=== PATIENT | male | born 1960 | race Caucasian/White ===

== ENCOUNTER 2018-11-06 21:20 | Inpatient (IN) | payer OTHER ==
[2018-11-06] MEDS ORDERED: Naloxone HCl 2 mg/2 ml Syringe ONE (21:22)
[2018-11-06] MEDS ORDERED: Rocuronium Bromide 10 MG/ML (10ML VIAL) ONE (21:24)
[2018-11-06] MEDS ORDERED: Fentanyl 100 MCG/2 ML VIAL ONE (21:30)
[2018-11-06] MEDS ORDERED: Midazolam HCl 2 mg/2 ml Vial ONE (21:30)
--- NOTE | 2018-11-06 21:48 | RAD ---
FRONTAL RADIOGRAPH CHEST PORTABLE SUPINE: 11/06/2018 HISTORY: Altered mental status. Intubated patient. COMPARISON: None. FINDINGS: Supine imaging limits assessment for pneumothorax and pleural fluid. Body habitus limits detailed as sessment of the upper abdomen. There is mild prominence of the cardiac silhouette, which may signify cardiomegaly or magnification. The endotracheal tube terminates just below the level of the clavicles, overlying the tracheal air co lumn. No focal consolidation. IMPRESSION: Endotracheal tube, as above. POS: [facility]
[2018-11-06 21:57] LABS: PTT 25.2 SEC (22.9-36.1); Prothrombin Time 13.3 SEC (12.0-14.7)
[2018-11-06 22:04] LABS: Band 10 % (5-11); Lymphocytes 29 % (21-51); MDiff Complete? YES; Mean Corpuscular HGB CONC 34.3 g/dL (32.0-36.0); Mean Corpuscular Hemoglobin 34.6 pg (27.0-31.0); Mean Platelet Volume 8.8 fL (7.4-10.4); Metamyelocyte 2 % (0-0); Monocytes 2 % (0-10); Myelocyte 1 % (0-0); Neutrophil 56 % (42-75); Nucleated RBC 1 % (0); Platelet Count 201 thou/uL (130-400); Platelet Morphology Comment Appears Adequate; RBC Distribution Width 11.9 % (11.5-14.5); Red Blood Cell (RBC) Count 5.77 mill/uL (4.70-6.10); White Blood Cell (WBC) Count 25.4 thou/uL (4.8-10.8)
[2018-11-06 22:08] LABS: ALT (SGPT) 43 U/L (8-55); AST (SGOT) 69 U/L (5-34); Acetaminophen Less than 6.0 mcg/mL (10.0-30.0); Albumin 4.3 g/dL (3.5-5.0); Alcohol 48 mg/dL (Less than 10); Alkaline Phosphatase 74 U/L (40-150); Anion Gap 27 mmol/L (10-20); BUN (Urea Nitrogen) 13 mg/dL (8.4-25.7); Bilirubin, Total 0.6 mg/dL (0.2-1.2); CK (CPK) 166 U/L (30-200); Calc. Creatinine Clearance 0 mL/min (70-130); Calcium 10.4 mg/dL (7.8-10.44); Carbon Dioxide 20 mmol/L (22-29); Chloride 97 mmol/L (98-107); Estimated GFR-MDRD 31; Globulin 5.1 g/dL (2.4-3.5); Glucose 127 mg/dL (70-105); Lipase 29 U/L (8-78); Potassium 5.9 mmol/L (3.5-5.1); Protein, Total 9.4 g/dL (6.0-8.3); Salicylate Less than 8.0 mg/dL (15.0-30.0); Sodium 138 mmol/L (136-145)
[2018-11-06 22:15] LABS: Amphetamine Not Detected (NotDetected); Barbiturates Screen Not Detected (NotDetected); Benzodiazepine Screen Not Detected (NotDetected); Cocaine Metabolite Screen Detected (NotDetected); Medtox Control Line Valid? VALID (VALID); Medtox Reader # READER 4; Methadone Not Detected (NotDetected); Methamphetamine Detected (NotDetected); Opiate Screen Detected (NotDetected); Oxycodone Screen Not Detected (NotDetected); Phencyclidine (PCP) Not Detected (NotDetected); THC/Cannabinoid Screen Not Detected (NotDetected); Tricyclic Screen Not Detected (NotDetected)
[2018-11-06 22:30] LABS: CKMB 18.8 ng/mL (0-6.6)
[2018-11-06] MEDS ORDERED: Dextrose 50% Abboject 50 ML SYRINGE ONE (22:43)
[2018-11-06] MEDS ORDERED: Aspirin 300 MG Suppository ONE (22:43)
[2018-11-06] MEDS ORDERED: Calcium Chloride 1 GM/10 ML Abboject SYRINGE ONE (22:43)
[2018-11-06] MEDS ORDERED: Insulin Regular 300 UNITS/3 ML VIAL ONE (22:43)
[2018-11-06] MEDS ORDERED: Sodium Bicarbonate 150 MEQ in Dextrose 5% in Water 1,000 ML IV SCH ×2 (22:45→23:47)
--- NOTE | 2018-11-06 22:55 | CT ---
CT HEAD WITHOUT CONTRAST: 11/06/2018 HISTORY: Unresponsive patient. COMPARISON: None. TECHNIQUE: Axial CT imaging at 5 mm intervals, from the vertex through the skull base, without contrast. FINDINGS: The imaged paranasal sinuses and mastoid air cells are well aerated. There is no displaced calvarial fracture. No intracranial hemorrhage, midline shift, mass effect, or ventricular enlargement. IMPRESSION: No intracranial hemorrhage. POS: [facility]
--- NOTE | 2018-11-06 22:57 | CT ---
CT CERVICAL SPINE: 11/06/2018 HISTORY: Altered mental status. COMPARISON: None. TECHNIQUE: Axial CT imaging at 2.5 mm intervals, through the cervical spine, with coronal and sagittal reformatt ed imaging. FINDINGS: There is an endotracheal tube present. The imaged lung apices are unremarkable. The craniocervical junction, atlantoaxial interspace, dense, C1-C2 articulation, and cervicothoracic junction demonstrat e no acute findings. No prevertebral soft tissue swelling, fracture, or dislocation. No anterolisth esis or retrolisthesis. IMPRESSION: No acute osseous abnormality. POS: [facility]
[2018-11-06 23:03] LABS: CO2 Tension 68.5 mmHg (35.0-45.0); O2 Tension (PaO2) 70.1 mmHg (80.0-100.0); pH, Arterial 7.11 (7.35-7.45)
[2018-11-06 23:04] LABS: Actual Bicarbonate (HCO3a) 21.2 mEq/L (22-28); Base Excess (BEa) 10.2 mEq/L (-2.0 to +3.0); Calcium, Ionized 1.22 mmol/L (1.12-1.30); Carboxyhemoglobin (COHb) 4.9 gm% (0.0-3.0); Hemoglobin (Hb) 20.4 g/dL (14.0-18.0); Potassium - ABG Lab 4.38 mmol/L (3.70-5.30)
[2018-11-06] MEDS ORDERED: Propofol 1,000 MG/100 ML VIAL IV ONE (23:04)
[2018-11-06 23:05] LABS: Analyzer IN Cardio ER; Puncture Site LRA
[2018-11-06] MEDS ORDERED: Ondansetron PF 4 MG/2 ML Vial IVP PRN (23:18)
[2018-11-06] MEDS ORDERED: Acetaminophen 650 MG Suppository PR PRN (23:18)
--- NOTE | 2018-11-06 23:48 | RAD ---
PORTABLE SEMIUPRIGHT FRONTAL CHEST RADIOGRAPH: 11/06/2018 11:12 p.m. HISTORY: Central line placement. COMPARISON: 11/06/2018 at 9:28 p.m. FINDINGS: Endotracheal tube terminates at the level of the clavicular heads. Nasogastric tube extends into the upper abdomen, incompletely imaged. Right-sided vascular catheter terminates over the region of the cavoatrial junction. no pneumothorax is evident. There is new interstitial and aveolar opacity in the perihilar regions in both lung bases. Probable new bilateral pleural effusions are noted as well. IMPRESSION: Lines and tubes as above. New perihilar and bibasilar interstitial and alveolar opacity, with probab le associated pleural effusion, suggests pulmonary edema. Aspiration cannot be excluded. Followup t o resolution advised. POS: [facility]
--- NOTE | 2018-11-06 23:57 | PDOC.EVN ---
Event Note - Event Note Event Note: H&P [id number]
[2018-11-07] MEDS ORDERED: Norepinephrine 8 MG/0.9% NS 250 ML ONE (00:23)
[2018-11-07] MEDS ORDERED: Clindamycin/D5W 900 mg/50 ml Premix Bag ONE (00:25)
[2018-11-07] MEDS ORDERED: Cefepime 2 GM VIAL ONE (00:25)
--- NOTE | 2018-11-07 00:35 | HP ---
ADMITTING COMPLAINT: Drug overdose. HISTORY OF PRESENT ILLNESS: This is a 58-year-old male, who was admitted to the Residence Team initially and then they called back saying that there were capsule and the patient was then admitted to Internal Medicine Service here at [facility]. History is not really available for this patient according to discussions with the ER doctor. Apparently, a bunch of people just came by and dropped the patient off and give his first and last name and left. Laboratory results found that the patient had apparently done opioids, methamphetamines, cocaine, and alcohol. Apart from that, no real history available. Per EMS, the patient was blue. They gave him ice water. The patient was intubated for respiratory failure here in the ER and that is all that is available. ALLERGIES: UNKNOWN. SOCIAL HISTORY: Unknown. PAST MEDICAL HISTORY: Unknown. HOME MEDICATIONS: Unknown. REVIEW OF SYSTEMS: Not possible given the patient is intubated. PHYSICAL EXAMINATION: GENERAL: The patient is intubated. HEENT: Pupils are dilated, mildly constrictive to light. LUNGS: Lung sounds coarse. HEART: Heart sounds, tachycardia. Faint systolic murmur appreciated. ABDOMEN: Rotund. Positive bowel sounds. Soft. EXTREMITIES: 1+ pitting edema in bilateral lower extremities. LABORATORY DATA: CBC, WBC count of 25, hemoglobin of 20. ABG shows pH of 7.11, pCO2 of 68.5, PO2 of 70. Basic metabolic panel shows sodium 138, potassium 5.9, anion gap of 27, bicarb of 20, creatinine 2.17, lactic acid of 8.7, glucose 124 , AST 69, ALT 43, CK-MB of 18.8, troponins 0.05. Toxicology screen positive for methamphetamines, cocaine, opioids, and alcohol. CT brain negative. Chest x- ray negative. Cervical spine CT negative. ASSESSMENT: 1. Drug overdose. 2. Respiratory failure. 3. Respiratory acidosis with metabolic acidosis, as well as non-anion gap metabolic alkalosis. 4. Sinus tachycardia with significant hypertensive emergency secondary to drug use, likely. 5. Acute kidney injury versus chronic kidney disease. 6. Questionable history of heart failure. 7. Elevated troponins. PLAN: 1. At this point in time, we will admit the patient to IMCU. Consult Cardiology , Pulmonary, and Nephrology. 2. This patient's hyperkalemia has been treated with insulin. The patient has received 2 L of fluid along with another liter of bicarb. Initial labs that were done at 9 o'clock do show high hemoglobin, possible the patient being dry, appears fluid resuscitated at this point in time. KYE may be secondary to ATN. At this point in time, case was discussed with the bacteriologist medical attending. They felt that fluids would be better served for the patient. 3. My concern at this point in time is the patient is tachycardic significantly with blood pressure systolics ranging in the 210s, diastolics in the 140s. He has gotten significant amount of fluids, so we will not bolus more fluids. We will do 75 mL of bicarb drip given the significant acidosis, very high probability, the bicarb levels are probably full by next BMP. 4. We will get the next BMP at 2:00 a.m. and following after that in the morning. 5. Repeat lactic acid. 6. Serum osmolality was ordered and pending, not available. 7. Trend troponins. 8. The patient intubated. Vent management per Pulmonary. 9. Unclear if the patient actually is having ACS for his past medical history as he is slightly overweight, obese, not sure this is the first time he has done drugs or what his prior cardiac conditions are, so we will order an echo to evaluate for architectural conditions of the heart possibly the valves, right ventricular pressures as well as ejection fraction. No known drug allergies, so for now, we will monitor. We will use labetalol for heart rate and blood pressure control. We will consider starting N-acetylcysteine depending on next set of lab panel. Prognosis appears overall poor if he does have a history of heart failure or prior drug use but at this point in time, cannot tell by default. The patient will be a full code. No family available at bedside depending on serum osmolarity or if there is serum osmolar gap. We have advised the nurse to give me a call or the ICU attending for possible emergent dialysis to be taken into consideration. No family at bedside. Plan discussed with the General Critical Care attending, as well as the ER doc. Job ID: [id number] [id number]
[2018-11-07 00:36] LABS: Anion Gap 16 mmol/L (10-20); BUN (Urea Nitrogen) 14 mg/dL (8.4-25.7); Calc. Creatinine Clearance 0 mL/min (70-130); Calcium 9.6 mg/dL (7.8-10.44); Carbon Dioxide 27 mmol/L (22-29); Chloride 102 mmol/L (98-107); Estimated GFR-MDRD 41; Glucose 201 mg/dL (70-105); Potassium 3.9 mmol/L (3.5-5.1); Sodium 141 mmol/L (136-145)
[2018-11-07] MEDS ORDERED: Fentanyl BOLUS 250 ML IVPB PRN (01:53)
[2018-11-07] MEDS ORDERED: DISCONTINUE PREVIOUS NARCOTIC PAIN MEDICATIONS AND BENZODIAZEPINES FS SCH (01:53)
[2018-11-07] MEDS ORDERED: Morphine 2 MG/ML SYRINGE SLOW IVP PRN (01:53)
[2018-11-07] MEDS ORDERED: Propofol BOLUS 1,000 MG/100 ML VIAL IV PRN (01:53)
[2018-11-07 01:56] LABS: Lactic Acid 2.2 mmol/L (0.5-2.2)
[2018-11-07 02:28] LABS: Lactic Acid 1.9 mmol/L (0.5-2.2)
[2018-11-07] MEDS ORDERED: Sodium Chloride 0.9% 1,000 ML IV SCH (02:30)
[2018-11-07 02:34] LABS: Band 28 % (5-11); Hemoglobin 17.9 g/dL (14.0-18.0); Lymphocytes 5 % (21-51); MDiff Complete? YES; Mean Corpuscular HGB CONC 32.8 g/dL (32.0-36.0); Mean Corpuscular Hemoglobin 32.8 pg (27.0-31.0); Mean Platelet Volume 6.6 fL (7.4-10.4); Metamyelocyte 1 % (0-0); Monocytes 4 % (0-10); Neutrophil 62 % (42-75); Platelet Count 184 thou/uL (130-400); Platelet Morphology Comment Appears Adequate; RBC Distribution Width 11.7 % (11.5-14.5); Red Blood Cell (RBC) Count 5.46 mill/uL (4.70-6.10); White Blood Cell (WBC) Count 12.9 thou/uL (4.8-10.8)
[2018-11-07] MEDS ORDERED: Norepinephrine 8 MG/250 ML BAG IVPB PRN (02:43)
[2018-11-07 02:50] LABS: Base Excess (BEa) -2.6 mEq/L (-2.0 to +3.0); Calcium, Ionized 1.25 mmol/L (1.12-1.30); Carboxyhemoglobin (COHb) 2.9 gm% (0.0-3.0); Hemoglobin (Hb) 18.2 g/dL (14.0-18.0); O2 Tension (PaO2) 67.1 mmHg (80.0-100.0); Potassium - ABG Lab 4.61 mmol/L (3.70-5.30)
[2018-11-07 02:51] LABS: CO2 Tension 72.8 mmHg (35.0-45.0); Puncture Site RBRACH
[2018-11-07 03:00] LABS: ALT (SGPT) 38 U/L (8-55); AST (SGOT) 95 U/L (5-34); Albumin 3.2 g/dL (3.5-5.0); Alkaline Phosphatase 54 U/L (40-150); Anion Gap 16 mmol/L (10-20); BUN (Urea Nitrogen) 16 mg/dL (8.4-25.7); Bilirubin, Total 1.6 mg/dL (0.2-1.2); Calc. Creatinine Clearance 75 mL/min (70-130); Calcium 9.3 mg/dL (7.8-10.44); Carbon Dioxide 26 mmol/L (22-29); Chloride 103 mmol/L (98-107); Estimated GFR-MDRD 38; Globulin 3.2 g/dL (2.4-3.5); Glucose 146 mg/dL (70-105); Potassium 4.7 mmol/L (3.5-5.1); Protein, Total 6.4 g/dL (6.0-8.3); Sodium 140 mmol/L (136-145)
--- NOTE | 2018-11-07 04:28 | CON ---
DATE OF CONSULTATION: 11/07/2018 TIME SPENT: This is 35 minutes critical time. CONSULTING PHYSICIAN: Dr. Dill. REASON FOR CONSULTATION: ICU management. HISTORY OF PRESENT ILLNESS: Mr. Richardson is a 58-year-old male, who apparently was brought to the ER unresponsive. He had been doing multiple drugs with opioids, methamphetamines, cocaine, and alcohol. He was blue. He was intubated. PAST MEDICAL HISTORY: Unknown. PAST SURGICAL HISTORY: Unknown. ALLERGIES: UNKNOWN. MEDICATIONS: Unknown. FAMILY MEDICAL HISTORY: Unknown. REVIEW OF SYSTEMS: Unobtainable. PHYSICAL EXAMINATION: VITAL SIGNS: Pulse 101, blood pressure 96/65, O2 sat 97%, respiratory rate 18. GENERAL: This patient is a heavyset male who is intubated and on mechanical ventilation. HEENT: He has pinpoint pupils, 1 mm. NECK: No JVD. LUNGS: Coarse breath sounds bilaterally. CARDIOVASCULAR: S1 and S2, regular. ABDOMEN: Obese, soft, and nontender. EXTREMITIES: No clubbing, cyanosis, or edema. NEUROLOGICAL: He moves all 4 extremities. LABORATORY DATA: White blood cell count 25.4, hemoglobin 20, hematocrit 58, platelet count 201. INR 1.0, PTT 25.2. PH initially 7.11, pCO2 of 68, and pO2 of 70, SIMV rate 16, tidal volume 550, PEEP 5, pressure support 10. FiO2 was not recorded. Sodium 141, potassium 3.9, chloride 102, CO2 of 27, BUN 14, creatinine 1.7, glucose 201, anion gap is 4, lactate repeated is 3.3, calcium 9.6. Opiates, methamphetamines, and cocaines were all positive on drug screen. Alcohol level 48. His chest x-ray shows interstitial edema bilaterally. DIAGNOSTIC DATA: Head CT showed no evidence of hemorrhage. ASSESSMENT: 1. Narcotic overdose. 2. Acute respiratory failure from mechanical ventilation. 3. Acute renal insufficiency, which has already improved on a repeat chemistry. 4. Hyperkalemia, which is resolved. 5. Lactic acidosis, improved. PLAN: Basically supported with mechanical ventilation. Keep on light sedation. He probably needs more fluids than what he has already received. His CVP was 9, so we have some room to give more volume as we need to. Thank you for the referral. We will follow with you. Job ID: [id number]
[2018-11-07 06:55] LABS: Actual Bicarbonate (HCO3a) 28.1 mEq/L (22-28); Base Excess (BEa) -2.1 mEq/L (-2.0 to +3.0); Calcium, Ionized 1.19 mmol/L (1.12-1.30); Hemoglobin (Hb) 18.5 g/dL (14.0-18.0); O2 Tension (PaO2) 71.9 mmHg (80.0-100.0); Potassium - ABG Lab 5.89 mmol/L (3.70-5.30)
[2018-11-07 06:56] LABS: pH, Arterial 7.22 (7.35-7.45)
[2018-11-07 06:57] LABS: ALV-art Gradient 410.625 (0-20); CO2 Tension 70.3 mmHg (35.0-45.0); Puncture Site LBA
[2018-11-07] MEDS ORDERED: Bacteriostatic Water 30 ML VIAL FS PRN (08:09)
[2018-11-07] MEDS: Sodium Chloride 0.9% 1,000 ML IV SCH (08:44)
[2018-11-07] MEDS: Enoxaparin Sodium 40 MG/0.4 ML SYRINGE SC SCH (08:47)
[2018-11-07] MEDS: Famotidine/PF 20 mg/2ml Vial SLOW IVP SCH ×2 (08:47→20:41)
--- NOTE | 2018-11-07 09:19 | RAD ---
RADIOGRAPH ABDOMEN ONE VIEW: 11/07/2018 3:18 a.m. HISTORY: A 58-year-old male with abdominal distention and drug overdose. COMPARISON: None. FINDINGS: A large amount of gas in a loop of colon in the right side of the abdomen. Paucity of small bowel ga s. IMPRESSION: Nonspecific bowel gas pattern without overt evidence of small bowel obstruction. POS: [facility]
[2018-11-07] MEDS: Lorazepam 2 MG/ML VIAL SLOW IVP PRN ×3 (10:00→20:42)
[2018-11-07] MEDS: fentaNYL Citrate/PF 2,000 MCG in Sodium Chloride 0.9% 60 ML IV SCH ×2 (10:15→22:49)
[2018-11-07] MEDS: methylPREDNISolone Sod Succ 40 MG VIAL IVP SCH ×2 (11:51→17:37)
--- NOTE | 2018-11-07 15:00 | CON ---
DATE OF CONSULTATION: 11/07/2018 REASON FOR CONSULTATION: Elevated troponin. HISTORY OF PRESENT ILLNESS: Mr. Richardson is a 58-year-old black gentleman, who comes to the hospital for a drug overdose. Apparently, he was doing several different drugs, including cocaine, methamphetamines, alcohol, and opioids. He was unresponsive, was actually severely hypoxic in the ER to the point where he was blue. He had to be intubated immediately and he is doing much better now. During his admission, he had blood work, one of which was troponin, which is mildly elevated, so Cardiology is being consulted for that. He is unable to give me any history as he remains intubated, however; he opens his eyes wide open when you move him or when you talk to him and he follows with already following commands. PAST MEDICAL HISTORY: unknown. SURGICAL HISTORY: Unknown. ALLERGIES: UNKNOWN. MEDICATIONS: Outpatient medications are unknown. FAMILY HISTORY: Unknown. REVIEW OF SYSTEMS: Unobtainable as the patient remains intubated. PHYSICAL EXAMINATION: VITAL SIGNS: Temperature 100.1 and the highest has been 100.4 earlier today, pulse 80, respiratory rate 27, saturating 99% on 40% FiO2 and mechanical ventilation, and blood pressure 125/81. GENERAL: Intubated, but opens his eyes to any verbal command. HEENT: Normocephalic. LUNGS: Coarse breath sounds. CARDIOVASCULAR: S1 and S2. No S3 or S4. No murmurs. ABDOMEN: Soft. Positive bowel sounds. EXTREMITIES: No edema. SKIN: Warm and dry. LABORATORY DATA: Laboratory work was reviewed. CBC with a white count of 25, down to 12; hemoglobin was 20, down to 17; and platelet count of 184. Coags were normal. ABG was reviewed, acidotic. Chemistries were reviewed. Creatinine improved from 2.1 to 1.7. Toxicology positive for urine opiates, methamphetamines, cocaine and plasma alcohol was 48. ASSESSMENT AND PLAN: 1. Drug overdose. 2. Positive troponins. PLAN: Troponins are actually in the indeterminate range. We will get an echocardiogram to assess LV function, valvular structures as he may have a cardiomyopathy from drug use. This is not the case, then this is just related to his severe hypoxia, near experience. Otherwise, no major arrhythmias seen so far. Thank you for letting us to participate in the care of your patient. We will follow. Job ID: [id number]
--- NOTE | 2018-11-07 15:48 | CON ---
DATE OF CONSULTATION: REASON FOR CONSULTATION: A 58-year-old gentleman being seen for acute kidney injury. HISTORY OF PRESENT ILLNESS: A 58-year-old gentleman, who was intubated, unresponsive, was noted to have a creatinine of 1.8. Prior creatinine was 2.1 yesterday. No further history can be obtained. The patient comes in with narcotic overdose. PAST MEDICAL HISTORY: Unknown. PAST SURGICAL HISTORY: Unknown. ALLERGIES: UNKNOWN. MEDICATIONS: Unknown. FAMILY HISTORY: Negative for ESRD. REVIEW OF SYSTEMS: Unobtainable. PHYSICAL EXAMINATION: See above. Awake, alert, in no acute distress. GENERAL APPEARANCE AND MENTAL STATUS: Fair. HEAD/NECK: Normocephalic. Atraumatic. EYES: EOMI. No deformity. EARS: Clear. No ulcers. NOSE: Intact. No lesions. MOUTH: Clear. No discharge. THROAT: Clear. No exudate. LUNGS: Clear. No crackles. CARDIAC: S1, S2. No rub. ABDOMEN: Benign. Bowel sounds positive. GENITALIA/RECTUM: Kendrick absent. BACK/EXTREMITIES: Edema 0+. NEUROLOGICAL: Alert and motor intact. SKIN: LYMPHATICS: VITAL SIGNS: Reviewed. LABORATORY DATA: Labs show creatinine 1.8. ASSESSMENT AND PLAN: Acute kidney injury, improved. Hypertension, stable. Anemia, stable. No indication for dialysis at this time. Job ID: [id number]
--- NOTE | 2018-11-07 16:01 | PDOC.PN ---
- Subjective Encounter Start Date: 11/07/18 Encounter Start Time: 10:20 Pt seen for followup re: acute respiratory failure. Pt is intubated, unable to complete ROS. - Objective MAR Reviewed: Yes Vital Signs & Weight: Vital Signs (12 hours) Temp Pulse Resp BP Pulse Ox 11/07/18 14:12 80 125/81 11/07/18 14:11 81 27 H 99 11/07/18 14:00 26 H 11/07/18 12:12 76 11/07/18 12:00 100.1 F H 11/07/18 11:56 26 H 11/07/18 10:29 71 11/07/18 10:00 26 H 11/07/18 08:00 99.3 F 26 H 99 11/07/18 06:41 79 11/07/18 06:00 22 H 11/07/18 04:00 99.5 F 22 H Weight Admit Weight 266 lb Weight 266 lb 5.094 oz Most Recent Monitor Data Heart Rate from ECG 78 NIBP 115/81 NIBP BP-Mean 92 Respiration from ECG 26 SpO2 100 I&O: 11/06/18 11/07/18 11/08/18 06:59 06:59 06:59 Intake Total 1477.8 304 Output Total 117 225 Balance 1360.8 79 Result Diagrams: 11/07/18 02:04 11/07/18 02:04 Additional Labs: Accuchecks 11/06/18 22:47 POC Glucose 124 H Labs reviewed by me Phys Exam - Physical Examination Morbid obesity ETT Neck: no nodes Respiratory: clear to auscultation bilateral Cardiovascular: RRR Gastrointestinal: soft no spontaneous limb movements Deviation from normal: Unable to assess Dx/Plan (1) Acute respiratory failure with hypoxia and hypercapnia Code(s): J96.01 - ACUTE RESPIRATORY FAILURE WITH HYPOXIA; J96.02 - ACUTE RESPIRATORY FAILURE WITH HYPERCAPNIA Status: Acute Comment: Pt is intubated , mechanically ventilated (2) KYE (acute kidney injury) Code(s): N17.9 - ACUTE KIDNEY FAILURE, UNSPECIFIED Status: Acute Comment: nephrology following (3) Drug overdose Code(s): T50.901A - POISONING BY UNSP DRUG/MEDS/BIOL SUBST, ACCIDENTAL, INIT Status: Acute Comment: managed in CCU (4) Hypotension Status: Acute Comment: pt on levophed drip - Plan * . Review of Systems - Medications/Allergies Allergies/Adverse Reactions: Allergies Allergy/AdvReac Type Severity Reaction Status Date / Time Penicillins Allergy Verified 11/07/18 02:43 Medications: Current Medications Acetaminophen (Tylenol) 650 mg DC Q4H PRN PRN Reason: Headache/Fever/Mild Pain (1-3) Albuterol/Ipratropium (Duoneb) 3 ml NEB [id number] [facility] Last Admin: 11/07/18 14:11 Dose: 3 ml Enoxaparin Sodium (Lovenox) 40 mg SC 0900 [facility] Last Admin: 11/07/18 08:47 Dose: 40 mg Famotidine (Pepcid) 20 mg SLOW IVP BID [facility] Last Admin: 11/07/18 08:47 Dose: 20 mg Fentanyl Citrate 2,000 mcg/ (Sodium Chloride) 100 mls @ 0 mls/hr IV INF [facility]; Protocol Stop: 12/06/18 21:57 Last Admin: 11/07/18 10:15 Dose: 100 mls Fentanyl Citrate (Fentanyl Bolus) 250 mls @ 0 mls/hr IVPB PRN PRN PRN Reason: Breakthrough pain/agitation Stop: 12/07/18 01:53 Norepinephrine Bitartrate (Levophed) 250 mls @ 0 mls/hr IVPB INF PRN; Protocol PRN Reason: Blood Pressure Last Admin: 11/07/18 01:42 Dose: 250 mls Sodium Chloride (Normal Saline 0.9%) 1,000 mls @ 70 mls/hr IV .[id number] [facility] Last Admin: 11/07/18 08:44 Dose: 1,000 mls Levofloxacin 750 mg/ Device 150 mls @ 100 mls/hr IVPB Q24HR [facility] Last Admin: 11/07/18 08:47 Dose: 150 mls Lorazepam (Ativan) 2 mg SLOW IVP Q1H PRN PRN Reason: Breakthrough agitation Stop: 12/07/18 01:53 Last Admin: 11/07/18 10:00 Dose: 2 mg Methylprednisolone Sodium Succinate (Solu-Medrol) 40 mg IVP Q6HR [facility] Last Admin: 11/07/18 11:51 Dose: 40 mg Morphine Sulfate (Morphine) 2 mg SLOW IVP Q1H PRN PRN Reason: BREAKTHROUGH PAIN/Agitation Stop: 12/07/18 01:53 Discontinue Previous Narcotic Pain Medications And Benzodiazepines 1 each FS .ONE RM Stop: 12/07/18 01:53 Ondansetron HCl (Zofran) 4 mg IVP Q6H PRN PRN Reason: Nausea/Vomiting Propofol (Diprivan) 1,000 mg IV INF PRN; Protocol PRN Reason: TO ACHIEVE GOAL RASS Stop: 12/07/18 01:53 Propofol (Diprivan Bolus) 20 mg IV Q5MIN PRN PRN Reason: BREAKTHROUGH AGITATION Stop: 12/07/18 01:53 Sodium Chloride (Flush - Normal Saline) 10 ml IVF Q12HR [facility] Last Admin: 11/07/18 08:48 Dose: 10 ml Sodium Chloride (Flush - Normal Saline) 10 ml IVF PRN PRN PRN Reason: Saline Flush
[2018-11-08] MEDS: Lorazepam 2 MG/ML VIAL SLOW IVP PRN ×3 (00:07→22:15)
[2018-11-08] MEDS: methylPREDNISolone Sod Succ 40 MG VIAL IVP SCH ×5 (00:20→23:29)
[2018-11-08] MEDS: Sodium Chloride 0.9% 1,000 ML IV SCH ×2 (05:07→20:05)
[2018-11-08 05:40] LABS: #Lymphocytes 0.6 thou/uL (1.20-3.40); #Monocytes 0.3 thou/uL (0.11-0.59); #Neutrophils 10.2 thou/uL (1.40-6.50); %Eosinophils 0.1 % (0.0-10.0); %Lymphocytes 5.1 % (21.0-51.0); %Monocytes 2.9 % (0.0-10.0); %Neutrophils 91.8 % (42.0-75.0); Hemoglobin 15.6 g/dL (14.0-18.0); Mean Corpuscular HGB CONC 34.3 g/dL (32.0-36.0); Mean Corpuscular Hemoglobin 33.4 pg (27.0-31.0); Mean Corpuscular Volume 97.4 fL (78.0-98.0); Mean Platelet Volume 7.3 fL (7.4-10.4); Platelet Count 111 thou/uL (130-400); RBC Distribution Width 11.3 % (11.5-14.5); Red Blood Cell (RBC) Count 4.66 mill/uL (4.70-6.10); White Blood Cell (WBC) Count 11.1 thou/uL (4.8-10.8)
[2018-11-08 06:04] LABS: Anion Gap 13 mmol/L (10-20); BUN (Urea Nitrogen) 31 mg/dL (8.4-25.7); Calc. Creatinine Clearance 125 mL/min (70-130); Calcium 8.7 mg/dL (7.8-10.44); Carbon Dioxide 25 mmol/L (22-29); Chloride 105 mmol/L (98-107); Estimated GFR-MDRD 68; Glucose 189 mg/dL (70-105); Potassium 3.7 mmol/L (3.5-5.1); Sodium 139 mmol/L (136-145)
[2018-11-08 07:39] LABS: Actual Bicarbonate (HCO3a) 22.9 mEq/L (22-28); Base Excess (BEa) 1.3 mEq/L (-2.0 to +3.0); CO2 Tension 28.9 mmHg (35.0-45.0); Calcium, Ionized 1.16 mmol/L (1.12-1.30); Carboxyhemoglobin (COHb) 1.2 gm% (0.0-3.0); Hemoglobin (Hb) 16.2 g/dL (14.0-18.0); O2 Tension (PaO2) 68.5 mmHg (80.0-100.0); Potassium - ABG Lab 3.86 mmol/L (3.70-5.30); pH, Arterial 7.52 (7.35-7.45)
[2018-11-08 07:44] LABS: Puncture Site L.R.
[2018-11-08 07:45] LABS: ALV-art Gradient 251.875 (0-20)
[2018-11-08] MEDS: Enoxaparin Sodium 40 MG/0.4 ML SYRINGE SC SCH (08:01)
[2018-11-08] MEDS: Famotidine/PF 20 mg/2ml Vial SLOW IVP SCH ×2 (08:01→20:28)
[2018-11-08] MEDS: Propofol 1,000 MG/100 ML VIAL IV PRN ×3 (08:04→20:06)
--- NOTE | 2018-11-08 08:22 | PRG ---
DATE OF SERVICE: 11/08/2018 SUBJECTIVE: He remains intubated on mechanical ventilation. He will wake up and follow commands. OBJECTIVE: VITAL SIGNS: On exam, his temperature is 99.0, pulse 76, blood pressure 127/73, and O2 sat 94%. Intake for 24 hours 1831, output 840. HEENT: Unremarkable. NECK: No JVD. LUNGS: Coarse breath sounds. CARDIAC: S1 and S2. Regular. Off Levophed. ABDOMEN: Soft and nontender. EXTREMITIES: No clubbing, cyanosis, or edema. LABORATORY DATA: Sodium 139, potassium 3.7, chloride 105, CO2 of 25, BUN 31, creatinine 1.1, and glucose 189. PH of 7.51, pCO2 of 32, pO2 of 62, has bilevel rate at 26, high pressure 28, low pressure 8, and FiO2 of 50%. White blood cell count 11.1, hematocrit 45.4, and platelet count 111. ASSESSMENT: 1. Acute respiratory failure, requiring mechanical ventilation. 2. Bilateral pneumonia - I would have to presume aspiration. 3. Narcotic overdose. 4. Acute renal insufficiency, which is improved. 5. Hyperkalemia, which has resolved. 6. Lactic acidosis, resolved. PLAN: 1. He is not weanable at this time beyond some minor adjustments in the rate in the high inspiratory pressure. 2. Begin enteral tube feeds. 3. Continue antibiotics. 4. Add clindamycin to cover anaerobic given that this is likely an aspiration situation. Of note, this patient is penicillin allergic. 5. We would anticipate him being intubated a few more days. Job ID: [id number]
--- NOTE | 2018-11-08 09:22 | RAD ---
SINGLE VIEW CHEST: Date: 11/08/18 COMPARISON: 11/06/18. HISTORY: Pneumonia. FINDINGS: Single view of the chest shows an enlarged cardiomediastinal silhouette. Bilateral pulmonary vascular enlargement is seen. There appear to be small bilateral pleural effusions. The lines and tubes are u nchanged in position. IMPRESSION: Findings are most consistent with congestive heart failure with volume overload. POS: [facility]
[2018-11-08] MEDS: Clindamycin/D5W 600 MG in Premix Bag 1 BAG IVPB SCH ×2 (10:22→17:41)
--- NOTE | 2018-11-08 12:56 | PRG ---
DATE OF SERVICE: 11/08/2018 SUBJECTIVE: A 58-year-old gentleman being seen for acute kidney injury. The patient is resting. OBJECTIVE: CONSTITUTIONAL: On exam, the patient is awake and alert. VITAL SIGNS: Pulse 75, breathing 16, blood pressure 105/60. GENERAL APPEARANCE AND MENTAL STATUS: Fair. HEAD/NECK: Normocephalic. Atraumatic. EYES: EOMI. No deformity. EARS: Clear. No ulcers. NOSE: Intact. No lesions. MOUTH: Clear. No discharge. THROAT: Clear. No exudate. LUNGS: Clear. No crackles. CARDIAC: S1, S2. No rub. ABDOMEN: Benign. Bowel sounds positive. GENITALIA/RECTUM: Kendrick absent. BACK/EXTREMITIES: Edema 0+. NEUROLOGICAL: Alert and motor intact. LABORATORY DATA: Reviewed. IMPRESSION AND PLAN: 1. Acute kidney injury, resolved. 2. Hypertension, stable. 3. Anemia, stable. 4. Medication based on GFR, appropriate. I will sign off on this patient. Please reconsult as needed. Job ID: [id number]
[2018-11-08] MEDS: fentaNYL Citrate/PF 2,000 MCG in Sodium Chloride 0.9% 60 ML IV SCH (15:28)
--- NOTE | 2018-11-08 19:05 | PDOC.CTH ---
Cardiology Progress Note - Subjective No new issues. Currently remains sedated, intubated. - Objective Vital Signs Temp Pulse Resp BP Pulse Ox 11/08/18 18:42 66 18 96 11/08/18 18:00 18 11/08/18 16:00 18 11/08/18 15:00 99.1 F 11/08/18 14:36 85 130/69 11/08/18 14:35 88 18 96 11/08/18 14:00 18 11/08/18 12:00 99.5 F 18 11/08/18 10:19 74 11/08/18 10:00 18 11/08/18 09:00 99.2 F 11/08/18 08:00 18 11/08/18 07:45 18 11/08/18 07:18 75 127/73 11/08/18 07:14 77 26 H 94 L Admit Weight 266 lb Weight 268 lb 15.423 oz 11/07/18 11/08/18 11/09/18 06:59 06:59 06:59 Intake Total 1477.8 1871.8 1100 Output Total 117 840 640 Balance 1360.8 1031.8 460 - Physical Examination General/Neuro: other: (Sedated, intubated.) Neck: no JVD present Lungs: CTA, unlabored respirations Heart: RRR Abdomen: NT/ND Extremities: other: (no edema.) - Telemetry Telemetry Rhythm: NSR - Labs Result Diagrams: 11/08/18 04:35 11/08/18 04:35 Troponin/CKMB CK-MB (CK-2) 18.8 ng/mL (0-6.6) H* 11/06/18 21:26 Troponin I 0.055 ng/mL (< 0.028) H 11/06/18 21:26 - Assessment/Plan 1. Drug overdose. 2. Indeterminate troponins, likely demand from OD. PLAN: - CV stable, normal LV function. - Will sign off. Please call with any questions.
--- NOTE | 2018-11-08 19:32 | PDOC.PN ---
- Subjective Encounter Start Date: 11/08/18 Encounter Start Time: 10:00 Pt seen for followup re: acute hypoxic respiratory failure. Currently on vent, sedated, could not complete ROS. - Objective MAR Reviewed: Yes Vital Signs & Weight: Vital Signs (12 hours) Temp Pulse Resp BP Pulse Ox 11/08/18 18:42 66 18 96 11/08/18 18:00 18 11/08/18 16:00 18 11/08/18 15:00 99.1 F 11/08/18 14:36 85 130/69 11/08/18 14:35 88 18 96 11/08/18 14:00 18 11/08/18 12:00 99.5 F 18 11/08/18 10:19 74 11/08/18 10:00 18 11/08/18 09:00 99.2 F 11/08/18 08:00 18 11/08/18 07:45 18 Weight Admit Weight 266 lb Weight 268 lb 15.423 oz Most Recent Monitor Data Heart Rate from ECG 72 NIBP 121/59 NIBP BP-Mean 80 Respiration from ECG 18 SpO2 94 I&O: 11/07/18 11/08/18 11/09/18 06:59 06:59 06:59 Intake Total 1477.8 1871.8 1100 Output Total 117 840 640 Balance 1360.8 1031.8 460 Result Diagrams: 11/08/18 04:35 11/08/18 04:35 EKG Reviewed by me: Yes (Tele: NSR) Phys Exam - Physical Examination Morbid obesity HEENT: moist MMs Respiratory: clear to auscultation bilateral Cardiovascular: RRR Gastrointestinal: soft Deviation from normal: Unable to assess Dx/Plan (1) Acute respiratory failure with hypoxia and hypercapnia Code(s): J96.01 - ACUTE RESPIRATORY FAILURE WITH HYPOXIA; J96.02 - ACUTE RESPIRATORY FAILURE WITH HYPERCAPNIA Status: Acute Comment: Pt is intubated , mechanically ventilated, managed in CCU. (2) Drug overdose Code(s): T50.901A - POISONING BY UNSP DRUG/MEDS/BIOL SUBST, ACCIDENTAL, INIT Status: Acute Comment: managed in CCU (3) Hypotension Status: Resolved (4) KYE (acute kidney injury) Code(s): N17.9 - ACUTE KIDNEY FAILURE, UNSPECIFIED Status: Resolved - Plan * . Review of Systems - Medications/Allergies Allergies/Adverse Reactions: Allergies Allergy/AdvReac Type Severity Reaction Status Date / Time Penicillins Allergy Verified 11/07/18 02:43 Medications: Current Medications Acetaminophen (Tylenol) 650 mg MA Q4H PRN PRN Reason: Headache/Fever/Mild Pain (1-3) Albuterol/Ipratropium (Duoneb) 3 ml NEB [id number] [facility] Last Admin: 11/08/18 18:42 Dose: 3 ml Enoxaparin Sodium (Lovenox) 40 mg SC 0900 [facility] Last Admin: 11/08/18 08:01 Dose: 40 mg Famotidine (Pepcid) 20 mg SLOW IVP BID [facility] Last Admin: 11/08/18 08:01 Dose: 20 mg Fentanyl Citrate 2,000 mcg/ (Sodium Chloride) 100 mls @ 0 mls/hr IV INF [facility]; Protocol Stop: 12/06/18 21:57 Last Admin: 11/08/18 15:28 Dose: 100 mls Fentanyl Citrate (Fentanyl Bolus) 250 mls @ 0 mls/hr IVPB PRN PRN PRN Reason: Breakthrough pain/agitation Stop: 12/07/18 01:53 Norepinephrine Bitartrate (Levophed) 250 mls @ 0 mls/hr IVPB INF PRN; Protocol PRN Reason: Blood Pressure Last Admin: 11/07/18 01:42 Dose: 250 mls Sodium Chloride (Normal Saline 0.9%) 1,000 mls @ 70 mls/hr IV .[id number] [facility] Last Admin: 11/08/18 05:07 Dose: 1,000 mls Levofloxacin 750 mg/ Device 150 mls @ 100 mls/hr IVPB Q24HR [facility] Last Admin: 11/08/18 08:02 Dose: 150 mls Clindamycin Phosphate/Dextrose (600 mg/ Device) 50 mls @ 100 mls/hr IVPB Q8H [facility] Last Admin: 11/08/18 17:41 Dose: 50 mls Lorazepam (Ativan) 2 mg SLOW IVP Q1H PRN PRN Reason: Breakthrough agitation Stop: 12/07/18 01:53 Last Admin: 11/08/18 05:06 Dose: 2 mg Methylprednisolone Sodium Succinate (Solu-Medrol) 40 mg IVP Q6HR [facility] Last Admin: 11/08/18 17:41 Dose: 40 mg Morphine Sulfate (Morphine) 2 mg SLOW IVP Q1H PRN PRN Reason: BREAKTHROUGH PAIN/Agitation Stop: 12/07/18 01:53 Discontinue Previous Narcotic Pain Medications And Benzodiazepines 1 each FS .ONE RM Stop: 12/07/18 01:53 Ondansetron HCl (Zofran) 4 mg IVP Q6H PRN PRN Reason: Nausea/Vomiting Propofol (Diprivan) 1,000 mg IV INF PRN; Protocol PRN Reason: TO ACHIEVE GOAL RASS Stop: 12/07/18 01:53 Last Admin: 11/08/18 13:38 Dose: 1,000 mg Propofol (Diprivan Bolus) 20 mg IV Q5MIN PRN PRN Reason: BREAKTHROUGH AGITATION Stop: 12/07/18 01:53 Sodium Chloride (Flush - Normal Saline) 10 ml IVF Q12HR RM Last Admin: 11/08/18 09:25 Dose: 10 ml Sodium Chloride (Flush - Normal Saline) 10 ml IVF PRN PRN PRN Reason: Saline Flush
[2018-11-09] MEDS: Propofol 1,000 MG/100 ML VIAL IV PRN ×6 (00:42→23:36)
[2018-11-09] MEDS: Clindamycin/D5W 600 MG in Premix Bag 1 BAG IVPB SCH ×3 (01:19→17:24)
[2018-11-09 04:01] LABS: Anion Gap 11 mmol/L (10-20); BUN (Urea Nitrogen) 42 mg/dL (8.4-25.7); Calc. Creatinine Clearance 126 mL/min (70-130); Calcium 8.6 mg/dL (7.8-10.44); Carbon Dioxide 26 mmol/L (22-29); Chloride 106 mmol/L (98-107); Estimated GFR-MDRD 69; Glucose 175 mg/dL (70-105); Potassium 4.3 mmol/L (3.5-5.1); Sodium 139 mmol/L (136-145)
[2018-11-09 04:02] LABS: Band 23 % (5-11); Hemoglobin 14.9 g/dL (14.0-18.0); Lymphocytes 3 % (21-51); MDiff Complete? YES; Mean Corpuscular HGB CONC 34.1 g/dL (32.0-36.0); Mean Corpuscular Hemoglobin 33.3 pg (27.0-31.0); Mean Corpuscular Volume 97.8 fL (78.0-98.0); Mean Platelet Volume 7.3 fL (7.4-10.4); Monocytes 2 % (0-10); Neutrophil 72 % (42-75); Platelet Count 121 thou/uL (130-400); Platelet Morphology Comment Appears Decreased; RBC Distribution Width 11.2 % (11.5-14.5); Red Blood Cell (RBC) Count 4.48 mill/uL (4.70-6.10); White Blood Cell (WBC) Count 14.9 thou/uL (4.8-10.8)
[2018-11-09] MEDS: methylPREDNISolone Sod Succ 40 MG VIAL IVP SCH ×3 (06:31→21:40)
[2018-11-09] MEDS ORDERED: Furosemide 40 MG/4 ML VIAL IVP SCH (08:15)
[2018-11-09 08:25] LABS: Actual Bicarbonate (HCO3a) 23.8 mEq/L (22-28); Base Excess (BEa) -0.7 mEq/L (-2.0 to +3.0); CO2 Tension 38.9 mmHg (35.0-45.0); Calcium, Ionized 1.21 mmol/L (1.12-1.30); Carboxyhemoglobin (COHb) 1.4 gm% (0.0-3.0); O2 Tension (PaO2) 60.5 mmHg (80.0-100.0); Potassium - ABG Lab 4.28 mmol/L (3.70-5.30)
[2018-11-09 08:28] LABS: ALV-art Gradient 247.375 (0-20); Puncture Site RR
--- NOTE | 2018-11-09 08:46 | RAD ---
CHEST ONE VIEW: INDICATIONS: Pneumonia. COMPARISON: 11/08/2018 FINDINGS/IMPRESSION: Cardiomegaly, pulmonary vascular congestion, central edema pattern, and left-sided pleural effusion p ersist. Right costophrenic angle is excluded. ET tube and gastric catheter are unchanged. No pneum othorax is demonstrated. POS: BH
[2018-11-09] MEDS: Enoxaparin Sodium 40 MG/0.4 ML SYRINGE SC SCH (08:47)
[2018-11-09] MEDS: Famotidine/PF 20 mg/2ml Vial SLOW IVP SCH ×2 (08:47→21:40)
[2018-11-09] MEDS: Lorazepam 2 MG/ML VIAL SLOW IVP PRN ×2 (08:48→15:00)
--- NOTE | 2018-11-09 08:52 | PRG ---
DATE OF SERVICE: 11/08/2018 SUBJECTIVE: He remains intubated on mechanical ventilation. PHYSICAL EXAMINATION: VITAL SIGNS: Temperature is 99.5, O2 saturation only running from the high 80s to the high 90s, pulse 70, and blood pressure 109/55. He is on no vasopressors. Intake for 24 hours 2407 and output 1160. HEENT: Unremarkable. NECK: No adenopathy, JVD, or bruits. LUNGS: Coarse breath sounds. CARDIAC: S1 and S2. Regular. ABDOMEN: Soft and nontender. EXTREMITIES: No edema. LABORATORY DATA: Sodium 139, potassium 4.2, chloride 106, CO2 of 26, BUN 43, creatinine 1.1, and glucose 175. White blood cell count 14.9, hematocrit 43.8, and platelet count 121. ABG pending. ASSESSMENT: 1. Acute respiratory failure, requiring mechanical ventilation. 2. Status post polysubstance overdose. 3. Probable aspiration pneumonia. 4. Elevated BUN compared to creatinine. This could be due to steroids. PLAN: 1. I will decrease the steroid dose. 2. Stop IV fluids. 3. Give one dose of diuretics and see how he responds. 4. I have adjusted the low PEEP on his ventilator, also increase his inspiratory time. 5. We will await ABG. Job ID: [id number]
[2018-11-09] MEDS: fentaNYL Citrate/PF 2,000 MCG in Sodium Chloride 0.9% 60 ML IV SCH (15:16)
--- NOTE | 2018-11-09 19:16 | PDOC.PN ---
- Subjective Encounter Start Date: 11/09/18 Encounter Start Time: 09:40 -: non-verbal Pt seen for followup re: acute hypoxic and hypercapnic respiratory failure. Pt intubated. - Objective MAR Reviewed: Yes Vital Signs & Weight: Vital Signs (12 hours) Temp Pulse Resp BP Pulse Ox 11/09/18 18:52 71 11/09/18 18:51 71 20 92 L 11/09/18 18:00 18 11/09/18 16:26 74 110/64 11/09/18 16:00 99.5 F 18 11/09/18 14:36 70 117/58 L 11/09/18 14:33 70 22 H 91 L 11/09/18 14:00 18 11/09/18 12:00 99.7 F H 18 11/09/18 11:02 74 11/09/18 10:00 18 11/09/18 08:00 99.5 F 18 88 L 11/09/18 07:29 65 125/70 11/09/18 07:28 67 18 92 L Weight Admit Weight 266 lb Weight 270 lb 4.587 oz Most Recent Monitor Data Heart Rate from ECG 67 NIBP 125/73 NIBP BP-Mean 84 Respiration from ECG 18 SpO2 92 I&O: 11/08/18 11/09/18 11/10/18 06:59 06:59 06:59 Intake Total 1871.8 2407 1010 Output Total 840 1160 485 Balance 1031.8 1247 525 Result Diagrams: 11/09/18 03:30 11/09/18 03:30 EKG Reviewed by me: Yes (Tele: NSR) Phys Exam - Physical Examination Intubated HEENT: moist MMs ETT Respiratory: clear to auscultation bilateral Cardiovascular: RRR Gastrointestinal: soft No spontaneous limb movements Deviation from normal: Unable to assess Dx/Plan (1) Acute respiratory failure with hypoxia and hypercapnia Code(s): J96.01 - ACUTE RESPIRATORY FAILURE WITH HYPOXIA; J96.02 - ACUTE RESPIRATORY FAILURE WITH HYPERCAPNIA Status: Acute Comment: Pt is intubated and mechanically ventilated (2) Drug overdose Code(s): T50.901A - POISONING BY UNSP DRUG/MEDS/BIOL SUBST, ACCIDENTAL, INIT Status: Acute Comment: being treated in CCU (3) Hypotension Status: Resolved (4) KYE (acute kidney injury) Code(s): N17.9 - ACUTE KIDNEY FAILURE, UNSPECIFIED Status: Resolved - Plan * . Review of Systems - Medications/Allergies Allergies/Adverse Reactions: Allergies Allergy/AdvReac Type Severity Reaction Status Date / Time Penicillins Allergy Verified 11/07/18 02:43 Medications: Current Medications Acetaminophen (Tylenol) 650 mg SD Q4H PRN PRN Reason: Headache/Fever/Mild Pain (1-3) Albuterol/Ipratropium (Duoneb) 3 ml NEB [id number] RM Last Admin: 11/09/18 18:51 Dose: 3 ml Enoxaparin Sodium (Lovenox) 40 mg SC 0900 [facility] Last Admin: 11/09/18 08:47 Dose: 40 mg Famotidine (Pepcid) 20 mg SLOW IVP BID [facility] Last Admin: 11/09/18 08:47 Dose: 20 mg Fentanyl Citrate 2,000 mcg/ (Sodium Chloride) 100 mls @ 0 mls/hr IV INF [facility]; Protocol Stop: 12/06/18 21:57 Last Admin: 11/09/18 15:16 Dose: 100 mls Fentanyl Citrate (Fentanyl Bolus) 250 mls @ 0 mls/hr IVPB PRN PRN PRN Reason: Breakthrough pain/agitation Stop: 12/07/18 01:53 Norepinephrine Bitartrate (Levophed) 250 mls @ 0 mls/hr IVPB INF PRN; Protocol PRN Reason: Blood Pressure Last Admin: 11/07/18 01:42 Dose: 250 mls Levofloxacin 750 mg/ Device 150 mls @ 100 mls/hr IVPB Q24HR [facility] Last Admin: 11/09/18 08:47 Dose: 150 mls Clindamycin Phosphate/Dextrose (600 mg/ Device) 50 mls @ 100 mls/hr IVPB Q8H [facility] Last Admin: 11/09/18 17:24 Dose: 50 mls Lorazepam (Ativan) 2 mg SLOW IVP Q1H PRN PRN Reason: Breakthrough agitation Stop: 12/07/18 01:53 Last Admin: 11/09/18 15:00 Dose: 2 mg Methylprednisolone Sodium Succinate (Solu-Medrol) 20 mg IVP Q12HR [facility] Last Admin: 11/09/18 08:48 Dose: 20 mg Morphine Sulfate (Morphine) 2 mg SLOW IVP Q1H PRN PRN Reason: BREAKTHROUGH PAIN/Agitation Stop: 12/07/18 01:53 Discontinue Previous Narcotic Pain Medications And Benzodiazepines 1 each FS .ONE RM Stop: 12/07/18 01:53 Ondansetron HCl (Zofran) 4 mg IVP Q6H PRN PRN Reason: Nausea/Vomiting Propofol (Diprivan) 1,000 mg IV INF PRN; Protocol PRN Reason: TO ACHIEVE GOAL RASS Stop: 12/07/18 01:53 Last Admin: 11/09/18 15:00 Dose: 1,000 mg Propofol (Diprivan Bolus) 20 mg IV Q5MIN PRN PRN Reason: BREAKTHROUGH AGITATION Stop: 12/07/18 01:53 Sodium Chloride (Flush - Normal Saline) 10 ml IVF Q12HR [facility] Last Admin: 11/09/18 08:48 Dose: 10 ml Sodium Chloride (Flush - Normal Saline) 10 ml IVF PRN PRN PRN Reason: Saline Flush
[2018-11-10] MEDS: Clindamycin/D5W 600 MG in Premix Bag 1 BAG IVPB SCH ×3 (01:29→16:13)
[2018-11-10] MEDS: Propofol 1,000 MG/100 ML VIAL IV PRN ×5 (04:08→21:36)
[2018-11-10 04:53] LABS: Anion Gap 12 mmol/L (10-20); BUN (Urea Nitrogen) 44 mg/dL (8.4-25.7); Calc. Creatinine Clearance 128 mL/min (70-130); Calcium 8.8 mg/dL (7.8-10.44); Carbon Dioxide 27 mmol/L (22-29); Chloride 106 mmol/L (98-107); Estimated GFR-MDRD 69; Glucose 175 mg/dL (70-105); Potassium 4.5 mmol/L (3.5-5.1); Sodium 140 mmol/L (136-145)
[2018-11-10 05:44] LABS: Hemoglobin 15.3 g/dL (14.0-18.0); Lymphocytes 5 % (21-51); MDiff Complete? YES; Mean Corpuscular HGB CONC 33.3 g/dL (32.0-36.0); Mean Corpuscular Volume 99.2 fL (78.0-98.0); Monocytes 1 % (0-10); Neutrophil 94 % (42-75); Platelet Count 121 thou/uL (130-400); Platelet Morphology Comment Appears Adequate; RBC Distribution Width 11.3 % (11.5-14.5); RBC Morphology Normal; Red Blood Cell (RBC) Count 4.65 mill/uL (4.70-6.10)
[2018-11-10 07:25] LABS: Actual Bicarbonate (HCO3a) 23.9 mEq/L (22-28); Base Excess (BEa) -0.2 mEq/L (-2.0 to +3.0); CO2 Tension 37.7 mmHg (35.0-45.0); Calcium, Ionized 1.23 mmol/L (1.12-1.30); Hemoglobin (Hb) 15.7 g/dL (14.0-18.0); O2 Tension (PaO2) 75.3 mmHg (80.0-100.0); Potassium - ABG Lab 4.45 mmol/L (3.70-5.30); pH, Arterial 7.42 (7.35-7.45)
[2018-11-10 07:26] LABS: ALV-art Gradient 234.075 (0-20); Puncture Site RRA
[2018-11-10] MEDS: fentaNYL Citrate/PF 2,000 MCG in Sodium Chloride 0.9% 60 ML IV SCH (07:44)
--- NOTE | 2018-11-10 07:47 | RAD ---
CHEST 1 VIEW: HISTORY: Pneumonia. COMPARISON: Radiograph of prior day. FINDINGS: The patient is intubated with endotracheal tube tip in good position at the level of the clavicles. Enteric tube is in place with the tip not well seen. Layering bilateral effusions. Moderate pulmonary edema. Right subclavian central venous catheter tip is not well seen due to overlying leads. No pneumothora x. IMPRESSION: Similar examination of the chest. POS: HOME
--- NOTE | 2018-11-10 08:47 | PRG ---
DATE OF SERVICE: 11/10/2018 SUBJECTIVE: Mr. Richardson remains intubated on mechanical ventilation, has been no acute changes overnight. He is not desaturating as much as he was yesterday with turning. OBJECTIVE: VITAL SIGNS: Temperature is 99.5 with a T-max of 99.7, pulse 80, blood pressure 120/64, he is currently requiring no vasopressors. A 24-hour intake was 1720, output 1725. HEENT: Unremarkable. NECK: No JVD. LUNGS: Coarse breath sounds bilaterally. CARDIAC: S1 and S2. Regular. ABDOMEN: Soft, obese, nontender, and nondistended. EXTREMITIES: No edema. LABORATORY DATA: Sodium 140, potassium 4.5, chloride 106, CO2 of 27, BUN 44, creatinine 1.1, and glucose 175. PH 7.42, pCO2 of 37, pO2 of 75, bilevel rate 18, inspiratory time 1.2 seconds, high pressure 24, and low pressure 12. White blood cell count 14, hematocrit 46, and platelet count 121. ASSESSMENT: 1. Respiratory failure, requiring mechanical ventilation. 2. Probable aspiration pneumonitis. 3. Polysubstance abuse overdose. PLAN: 1. Not weanable yet secondary to hypoxemia. We will continue ventilation at current settings. 2. Continue enteral tube feeds. 3. Continue IV antibiotics. 4. No family has come to visit the patient I know of. No one to contact to speak about his condition. Job ID: [id number]
[2018-11-10] MEDS: methylPREDNISolone Sod Succ 40 MG VIAL IVP SCH ×2 (08:52→21:35)
[2018-11-10] MEDS: Famotidine/PF 20 mg/2ml Vial SLOW IVP SCH ×2 (08:52→21:35)
[2018-11-10] MEDS: Enoxaparin Sodium 40 MG/0.4 ML SYRINGE SC SCH (08:53)
--- NOTE | 2018-11-10 17:56 | PDOC.PN ---
- Subjective Encounter Start Date: 11/10/18 Encounter Start Time: 11:20 Pt seen for followup re: acute hypoxic resp failure. Intubated, unable to complete ROS. - Objective MAR Reviewed: Yes Vital Signs & Weight: Vital Signs (12 hours) Temp Pulse Resp BP Pulse Ox 11/10/18 16:00 18 11/10/18 15:00 98.6 F 11/10/18 14:20 69 132/70 11/10/18 14:19 73 18 95 11/10/18 14:00 18 11/10/18 12:00 18 11/10/18 11:00 98.3 F 11/10/18 10:13 63 120/67 11/10/18 10:12 66 18 97 11/10/18 10:00 18 11/10/18 08:00 18 94 L 11/10/18 07:05 64 130/73 11/10/18 07:01 65 18 94 L 11/10/18 07:00 99.5 F 11/10/18 06:00 18 Weight Admit Weight 266 lb Weight 268 lb 15.423 oz Most Recent Monitor Data Heart Rate from ECG 66 NIBP 130/71 NIBP BP-Mean 99 Respiration from ECG 18 SpO2 95 I&O: 11/09/18 11/10/18 11/11/18 06:59 06:59 06:59 Intake Total 2407 1720 951 Output Total 1160 1725 1490 Balance 1247 -5 -539 Result Diagrams: 11/10/18 04:15 11/10/18 04:15 EKG Reviewed by me: Yes (Tele: NSR) Phys Exam - Physical Examination Intubated ETT+ Neck: no nodes Respiratory: clear to auscultation bilateral Cardiovascular: RRR Gastrointestinal: soft Deviation from normal: Unable to assess Dx/Plan (1) Acute respiratory failure with hypoxia and hypercapnia Code(s): J96.01 - ACUTE RESPIRATORY FAILURE WITH HYPOXIA; J96.02 - ACUTE RESPIRATORY FAILURE WITH HYPERCAPNIA Status: Acute Comment: Pt on ventilator , hypoxia better (2) Drug overdose Code(s): T50.901A - POISONING BY UNSP DRUG/MEDS/BIOL SUBST, ACCIDENTAL, INIT Status: Acute Comment: being managed in CCU (3) Aspiration pneumonia Code(s): J69.0 - PNEUMONITIS DUE TO INHALATION OF FOOD AND VOMIT Status: Acute Comment: continue clindamycin (4) Hypotension Status: Resolved (5) KYE (acute kidney injury) Code(s): N17.9 - ACUTE KIDNEY FAILURE, UNSPECIFIED Status: Resolved - Plan * . Review of Systems - Medications/Allergies Allergies/Adverse Reactions: Allergies Allergy/AdvReac Type Severity Reaction Status Date / Time Penicillins Allergy Verified 11/07/18 02:43 Medications: Current Medications Acetaminophen (Tylenol) [address] Q4H PRN PRN Reason: Headache/Fever/Mild Pain (1-3) Albuterol/Ipratropium (Duoneb) 3 ml NEB [id number] [facility] Last Admin: 11/10/18 14:19 Dose: 3 ml Enoxaparin Sodium (Lovenox) 40 mg SC 0900 [facility] Last Admin: 11/10/18 08:53 Dose: 40 mg Famotidine (Pepcid) 20 mg SLOW IVP BID [facility] Last Admin: 11/10/18 08:52 Dose: 20 mg Fentanyl Citrate 2,000 mcg/ (Sodium Chloride) 100 mls @ 0 mls/hr IV INF [facility]; Protocol Stop: 12/06/18 21:57 Last Admin: 11/10/18 07:44 Dose: 100 mls Fentanyl Citrate (Fentanyl Bolus) 250 mls @ 0 mls/hr IVPB PRN PRN PRN Reason: Breakthrough pain/agitation Stop: 12/07/18 01:53 Norepinephrine Bitartrate (Levophed) 250 mls @ 0 mls/hr IVPB INF PRN; Protocol PRN Reason: Blood Pressure Last Admin: 11/07/18 01:42 Dose: 250 mls Levofloxacin 750 mg/ Device 150 mls @ 100 mls/hr IVPB Q24HR [facility] Last Admin: 11/10/18 08:52 Dose: 150 mls Clindamycin Phosphate/Dextrose (600 mg/ Device) 50 mls @ 100 mls/hr IVPB Q8H [facility] Last Admin: 11/10/18 16:13 Dose: 50 mls Lorazepam (Ativan) 2 mg SLOW IVP Q1H PRN PRN Reason: Breakthrough agitation Stop: 12/07/18 01:53 Last Admin: 11/09/18 15:00 Dose: 2 mg Methylprednisolone Sodium Succinate (Solu-Medrol) 20 mg IVP Q12HR [facility] Last Admin: 11/10/18 08:52 Dose: 20 mg Morphine Sulfate (Morphine) 2 mg SLOW IVP Q1H PRN PRN Reason: BREAKTHROUGH PAIN/Agitation Stop: 12/07/18 01:53 Discontinue Previous Narcotic Pain Medications And Benzodiazepines 1 each FS .ONE [facility] Stop: 12/07/18 01:53 Ondansetron HCl (Zofran) 4 mg IVP Q6H PRN PRN Reason: Nausea/Vomiting Propofol (Diprivan) 1,000 mg IV INF PRN; Protocol PRN Reason: TO ACHIEVE GOAL RASS Stop: 12/07/18 01:53 Last Admin: 11/10/18 14:30 Dose: 1,000 mg Propofol (Diprivan Bolus) 20 mg IV Q5MIN PRN PRN Reason: BREAKTHROUGH AGITATION Stop: 12/07/18 01:53 Sodium Chloride (Flush - Normal Saline) 10 ml IVF Q12HR [facility] Last Admin: 11/10/18 08:53 Dose: 10 ml Sodium Chloride (Flush - Normal Saline) 10 ml IVF PRN PRN PRN Reason: Saline Flush
[2018-11-11] MEDS: Clindamycin/D5W 600 MG in Premix Bag 1 BAG IVPB SCH ×3 (00:45→16:56)
[2018-11-11] MEDS: fentaNYL Citrate/PF 2,000 MCG in Sodium Chloride 0.9% 60 ML IV SCH ×2 (02:21→21:41)
[2018-11-11] MEDS: Propofol 1,000 MG/100 ML VIAL IV PRN ×6 (03:21→23:11)
[2018-11-11 04:27] LABS: #Lymphocytes 0.7 thou/uL (1.20-3.40); #Monocytes 0.8 thou/uL (0.11-0.59); #Neutrophils 8.5 thou/uL (1.40-6.50); %Basophils 0.1 % (0.0-1.0); %Eosinophils 0.2 % (0.0-10.0); %Lymphocytes 6.7 % (21.0-51.0); %Monocytes 7.8 % (0.0-10.0); %Neutrophils 85.1 % (42.0-75.0); Hemoglobin 15.6 g/dL (14.0-18.0); Mean Corpuscular Hemoglobin 32.9 pg (27.0-31.0); Mean Corpuscular Volume 99.5 fL (78.0-98.0); Mean Platelet Volume 6.6 fL (7.4-10.4); Platelet Count 116 thou/uL (130-400); RBC Distribution Width 11.1 % (11.5-14.5); Red Blood Cell (RBC) Count 4.74 mill/uL (4.70-6.10)
[2018-11-11 04:45] LABS: Anion Gap 11 mmol/L (10-20); BUN (Urea Nitrogen) 40 mg/dL (8.4-25.7); Calc. Creatinine Clearance 151 mL/min (70-130); Calcium 8.8 mg/dL (7.8-10.44); Carbon Dioxide 27 mmol/L (22-29); Chloride 106 mmol/L (98-107); Estimated GFR-MDRD 84; Glucose 173 mg/dL (70-105); Potassium 4.8 mmol/L (3.5-5.1); Sodium 139 mmol/L (136-145)
--- NOTE | 2018-11-11 07:14 | RAD ---
RADIOGRAPH CHEST 1 VIEW: Date: 11/11/18 Time: 0444 hours HISTORY: 58-year-old male with pneumonia. COMPARISON: 11/10/18 and 11/09/18. FINDINGS: There is progressive interval improvement in aeration of the lungs. The diffuse mild haziness of the mid and upper lung zones on 11/09/18 have cleared. There continue to be air space densities at the bi lateral lower lung zones, left greater than right. These have also improved. There is better visualiz ation of the right hemidiaphragm now. The left hemidiaphragm remains obliterated. No pulmonary venous congestion. No pneumothorax. Endotracheal tube, right subclavian central line, and NG tube remain. IMPRESSION: 1. Progressive interval improvement in the aeration of both lungs. 2. Air space densities remain at the bilateral lung bases, but these are progressively improving. JENNIE [] POS: JIN
[2018-11-11 07:18] LABS: Base Excess (BEa) 0.5 mEq/L (-2.0 to +3.0); CO2 Tension 44.5 mmHg (35.0-45.0); Calcium, Ionized 1.26 mmol/L (1.12-1.30); Hemoglobin (Hb) 16.6 g/dL (14.0-18.0); O2 Tension (PaO2) 103.5 mmHg (80.0-100.0); Potassium - ABG Lab 4.68 mmol/L (3.70-5.30); pH, Arterial 7.38 (7.35-7.45)
[2018-11-11 07:22] LABS: Puncture Site RRA
[2018-11-11 07:23] LABS: ALV-art Gradient 197.375 (0-20)
--- NOTE | 2018-11-11 08:35 | PRG ---
DATE OF SERVICE: 11/11/2018 TIME SPENT: 35 minutes critical care time. SUBJECTIVE: Mr. Richardson remains intubated on mechanical ventilation. This is the first day, his O2 sats have been appropriate. He will wake up and follows some commands. OBJECTIVE: VITAL SIGNS: His temperature is 98.5 with no fever overnight, pulse 67, blood pressure 119/63, and O2 saturation in the mid 90s. Total intake 24 hours 1753, output 2540. HEENT: Unremarkable. NECK: No JVD. LUNGS: Clear anteriorly. CARDIAC: S1 and S2. Regular. ABDOMEN: Soft, obese, and nontender. EXTREMITIES: No edema. LABORATORY DATA: His chest x-ray has cleared somewhat compared to before. He continues on clindamycin and Levaquin for antibiotic coverage. He has been weaned off the Levophed. ASSESSMENT: 1. Acute hypoxic respiratory failure, requiring mechanical ventilation. We have seen some significant improvement in his oxygenation in the last 24 hours. 2. Aspiration pneumonitis. 3. Polysubstance abuse overdose. PLAN: 1. Today, we are turning down his FiO2. If he tolerates that, then we will start turning down his ventilator parameters tomorrow. Right now, he is on bilevel ventilation with adequate oxygenation. 2. Continue IV antibiotics. 3. Continue enteral tube feeds. 4. No family has presented themselves to discuss this case with. 5. He is starting to auto diurese. Because of his increased BUN and creatinine, I have been holding further diuretics, but by tomorrow, he may need another dose of Lasix. Job ID: [id number]
[2018-11-11] MEDS: Enoxaparin Sodium 40 MG/0.4 ML SYRINGE SC SCH (09:02)
[2018-11-11] MEDS: Famotidine/PF 20 mg/2ml Vial SLOW IVP SCH ×2 (09:02→21:16)
[2018-11-11] MEDS: Lorazepam 2 MG/ML VIAL SLOW IVP PRN ×2 (09:02→16:38)
[2018-11-11] MEDS: methylPREDNISolone Sod Succ 40 MG VIAL IVP SCH ×2 (09:03→21:16)
--- NOTE | 2018-11-11 19:01 | PDOC.PN ---
- Subjective Encounter Start Date: 11/11/18 Encounter Start Time: 10:20 Pt seen for followup re: acute respiratory failure. Intubated, could not complete ROS. - Objective MAR Reviewed: Yes Vital Signs & Weight: Vital Signs (12 hours) Temp Pulse Resp BP Pulse Ox 11/11/18 18:46 60 120/72 11/11/18 18:00 18 11/11/18 16:00 98.7 F 24 H 11/11/18 15:51 107 H 134/89 11/11/18 15:15 61 18 96 11/11/18 14:00 20 11/11/18 12:00 98.6 F 18 11/11/18 11:58 71 169/90 H 11/11/18 11:56 77 18 94 L 11/11/18 10:00 22 H 11/11/18 08:00 98.6 F 27 H 99 11/11/18 07:53 58 L 130/69 11/11/18 07:50 58 L 18 96 Weight Admit Weight 266 lb Weight 262 lb 5.601 oz Most Recent Monitor Data Heart Rate from ECG 65 NIBP 120/72 NIBP BP-Mean 91 Respiration from ECG 18 SpO2 93 I&O: 11/10/18 11/11/18 11/12/18 06:59 06:59 06:59 Intake Total 1720 1752 1440 Output Total 1725 2540 345 Balance -5 -788 1095 Result Diagrams: 11/11/18 04:20 11/11/18 04:20 EKG Reviewed by me: Yes (Tele: NSR) Phys Exam - Physical Examination Intubated HEENT: sclera anicteric Neck: no nodes Respiratory: clear to auscultation bilateral Cardiovascular: RRR Gastrointestinal: positive bowel sounds Deviation from normal: Unable to assess Dx/Plan (1) Acute respiratory failure with hypoxia and hypercapnia Code(s): J96.01 - ACUTE RESPIRATORY FAILURE WITH HYPOXIA; J96.02 - ACUTE RESPIRATORY FAILURE WITH HYPERCAPNIA Status: Acute Comment: Pt on ventilator , managed in CCU (2) Drug overdose Code(s): T50.901A - POISONING BY UNSP DRUG/MEDS/BIOL SUBST, ACCIDENTAL, INIT Status: Acute Comment: no significant change (3) Aspiration pneumonia Code(s): J69.0 - PNEUMONITIS DUE TO INHALATION OF FOOD AND VOMIT Status: Acute Comment: on clindamycin and levofloxacin (4) Hypotension Status: Resolved (5) KYE (acute kidney injury) Code(s): N17.9 - ACUTE KIDNEY FAILURE, UNSPECIFIED Status: Resolved - Plan * . Review of Systems - Medications/Allergies Allergies/Adverse Reactions: Allergies Allergy/AdvReac Type Severity Reaction Status Date / Time Penicillins Allergy Verified 11/07/18 02:43 Medications: Current Medications Acetaminophen (Tylenol) 650 mg SC Q4H PRN PRN Reason: Headache/Fever/Mild Pain (1-3) Albuterol/Ipratropium (Duoneb) 3 ml NEB [id number] [facility] Last Admin: 11/11/18 18:44 Dose: 3 ml Enoxaparin Sodium (Lovenox) 40 mg SC 0900 [facility] Last Admin: 11/11/18 09:02 Dose: 40 mg Famotidine (Pepcid) 20 mg SLOW IVP BID [facility] Last Admin: 11/11/18 09:02 Dose: 20 mg Fentanyl Citrate 2,000 mcg/ (Sodium Chloride) 100 mls @ 0 mls/hr IV INF RM; Protocol Stop: 12/06/18 21:57 Last Admin: 11/11/18 02:21 Dose: 100 mls Fentanyl Citrate (Fentanyl Bolus) 250 mls @ 0 mls/hr IVPB PRN PRN PRN Reason: Breakthrough pain/agitation Stop: 12/07/18 01:53 Levofloxacin 750 mg/ Device 150 mls @ 100 mls/hr IVPB Q24HR [facility] Last Admin: 11/11/18 09:14 Dose: 150 mls Clindamycin Phosphate/Dextrose (600 mg/ Device) 50 mls @ 100 mls/hr IVPB Q8H [facility] Last Admin: 11/11/18 16:56 Dose: 50 mls Lorazepam (Ativan) 2 mg SLOW IVP Q1H PRN PRN Reason: Breakthrough agitation Stop: 12/07/18 01:53 Last Admin: 11/11/18 16:38 Dose: 2 mg Methylprednisolone Sodium Succinate (Solu-Medrol) 20 mg IVP Q12HR [facility] Last Admin: 11/11/18 09:03 Dose: 20 mg Morphine Sulfate (Morphine) 2 mg SLOW IVP Q1H PRN PRN Reason: BREAKTHROUGH PAIN/Agitation Stop: 12/07/18 01:53 Discontinue Previous Narcotic Pain Medications And Benzodiazepines 1 each FS .ONE [facility] Stop: 12/07/18 01:53 Ondansetron HCl (Zofran) 4 mg IVP Q6H PRN PRN Reason: Nausea/Vomiting Propofol (Diprivan) 1,000 mg IV INF PRN; Protocol PRN Reason: TO ACHIEVE GOAL RASS Stop: 12/07/18 01:53 Last Admin: 11/11/18 15:49 Dose: 1,000 mg Propofol (Diprivan Bolus) 20 mg IV Q5MIN PRN PRN Reason: BREAKTHROUGH AGITATION Stop: 12/07/18 01:53 Sodium Chloride (Flush - Normal Saline) 10 ml IVF Q12HR [facility] Last Admin: 11/11/18 09:03 Dose: 10 ml Sodium Chloride (Flush - Normal Saline) 10 ml IVF PRN PRN PRN Reason: Saline Flush Last Admin: 11/10/18 21:36 Dose: 10 ml
[2018-11-12] MEDS: Clindamycin/D5W 600 MG in Premix Bag 1 BAG IVPB SCH ×3 (01:05→18:03)
[2018-11-12] MEDS: Propofol 1,000 MG/100 ML VIAL IV PRN ×4 (02:47→22:27)
[2018-11-12 04:41] LABS: #Lymphocytes 1.1 thou/uL (1.20-3.40); #Neutrophils 8.1 thou/uL (1.40-6.50); %Basophils 0.1 % (0.0-1.0); %Eosinophils 0.2 % (0.0-10.0); %Lymphocytes 10.7 % (21.0-51.0); %Monocytes 9.6 % (0.0-10.0); %Neutrophils 79.4 % (42.0-75.0); Hemoglobin 15.8 g/dL (14.0-18.0); Mean Corpuscular HGB CONC 33.6 g/dL (32.0-36.0); Mean Corpuscular Hemoglobin 33.2 pg (27.0-31.0); Mean Corpuscular Volume 98.8 fL (78.0-98.0); Mean Platelet Volume 7.2 fL (7.4-10.4); Platelet Count 109 thou/uL (130-400); RBC Distribution Width 11.2 % (11.5-14.5); Red Blood Cell (RBC) Count 4.77 mill/uL (4.70-6.10); White Blood Cell (WBC) Count 10.2 thou/uL (4.8-10.8)
[2018-11-12 04:56] LABS: Anion Gap 11 mmol/L (10-20); BUN (Urea Nitrogen) 36 mg/dL (8.4-25.7); Calc. Creatinine Clearance 186 mL/min (70-130); Calcium 8.8 mg/dL (7.8-10.44); Carbon Dioxide 27 mmol/L (22-29); Chloride 106 mmol/L (98-107); Estimated GFR-MDRD Greater than 90; Glucose 136 mg/dL (70-105); Potassium 4.9 mmol/L (3.5-5.1); Sodium 139 mmol/L (136-145)
--- NOTE | 2018-11-12 08:26 | RAD ---
CHEST 1 VIEW: Date: 11/12/18 INDICATION: Pneumonia. COMPARISON: Prior exam dated 11/11/18. IMPRESSION: Right basilar opacity has worsened. ET tube and gastric catheter are unchanged. Cardiomegaly persists . Small bilateral pleural effusions have worsened. Right subclavian central venous catheter is unchan ged. No pneumothorax is evident. POS: BH
[2018-11-12] MEDS: Enoxaparin Sodium 40 MG/0.4 ML SYRINGE SC SCH (08:40)
[2018-11-12] MEDS: methylPREDNISolone Sod Succ 40 MG VIAL IVP SCH (08:41)
[2018-11-12] MEDS: Famotidine/PF 20 mg/2ml Vial SLOW IVP SCH ×2 (08:41→20:14)
[2018-11-12 08:58] LABS: Actual Bicarbonate (HCO3a) 24.9 mEq/L (22-28); Base Excess (BEa) 1.9 mEq/L (-2.0 to +3.0); CO2 Tension 34.5 mmHg (35.0-45.0); Calcium, Ionized 1.23 mmol/L (1.12-1.30); Carboxyhemoglobin (COHb) 1.3 gm% (0.0-3.0); O2 Tension (PaO2) 73.5 mmHg (80.0-100.0); Potassium - ABG Lab 4.35 mmol/L (3.70-5.30); pH, Arterial 7.48 (7.35-7.45)
[2018-11-12 09:03] LABS: Puncture Site RRA
[2018-11-12 09:04] LABS: ALV-art Gradient 97.275 (0-20)
--- NOTE | 2018-11-12 10:04 | PDOC.PN ---
- Subjective Encounter Start Date: 11/12/18 Encounter Start Time: 09:00 Patient seen for followup re: acute respiratory failure. Opening eyes to voice and following some commands. Nonverbal, unable to complete ROS. - Objective MAR Reviewed: Yes Vital Signs & Weight: Vital Signs (12 hours) Temp Pulse Resp BP Pulse Ox 11/12/18 08:21 64 106/60 11/12/18 08:00 89 18 94 L 11/12/18 06:00 18 11/12/18 04:00 98.2 F 18 100 11/12/18 01:59 60 104/56 L 11/12/18 00:00 99.0 F 18 98 11/11/18 22:25 60 128/80 Weight Admit Weight 266 lb Weight 261 lb 11.019 oz Most Recent Monitor Data Heart Rate from ECG 57 NIBP 126/69 NIBP BP-Mean 106 Respiration from ECG 18 SpO2 99 I&O: 11/11/18 11/12/18 11/13/18 06:59 06:59 06:59 Intake Total 1752 2218.8 Output Total 2540 2455 Balance -788 -236.2 Result Diagrams: 11/12/18 04:20 11/12/18 04:20 EKG Reviewed by me: Yes (Tele: NSR) Phys Exam - Physical Examination Intubated HEENT: moist MMs ETT Bibasal crackles Cardiovascular: RRR Gastrointestinal: soft Neurological: moves all 4 limbs Psychiatric: normal affect Dx/Plan (1) Acute respiratory failure with hypoxia and hypercapnia Code(s): J96.01 - ACUTE RESPIRATORY FAILURE WITH HYPOXIA; J96.02 - ACUTE RESPIRATORY FAILURE WITH HYPERCAPNIA Status: Acute Comment: Pt on ventilator (2) Aspiration pneumonia Code(s): J69.0 - PNEUMONITIS DUE TO INHALATION OF FOOD AND VOMIT Status: Acute Comment: continue clindamycin and levofloxacin (3) Drug overdose Code(s): T50.901A - POISONING BY UNSP DRUG/MEDS/BIOL SUBST, ACCIDENTAL, INIT Status: Resolved (4) Hypotension Status: Resolved (5) KYE (acute kidney injury) Code(s): N17.9 - ACUTE KIDNEY FAILURE, UNSPECIFIED Status: Resolved - Plan * . Review of Systems - Medications/Allergies Allergies/Adverse Reactions: Allergies Allergy/AdvReac Type Severity Reaction Status Date / Time Penicillins Allergy Verified 11/07/18 02:43 Medications: Current Medications Acetaminophen (Tylenol) 650 mg [place] Q4H PRN PRN Reason: Headache/Fever/Mild Pain (1-3) Albuterol/Ipratropium (Duoneb) 3 ml NEB [id number] [facility] Last Admin: 11/12/18 08:00 Dose: 3 ml Enoxaparin Sodium (Lovenox) 40 mg SC 0900 [facility] Last Admin: 11/12/18 08:40 Dose: 40 mg Famotidine (Pepcid) 20 mg SLOW IVP BID [facility] Last Admin: 11/12/18 08:41 Dose: 20 mg Fentanyl Citrate 2,000 mcg/ (Sodium Chloride) 100 mls @ 0 mls/hr IV INF [facility]; Protocol Stop: 12/06/18 21:57 Last Admin: 11/11/18 21:41 Dose: 100 mls Fentanyl Citrate (Fentanyl Bolus) 250 mls @ 0 mls/hr IVPB PRN PRN PRN Reason: Breakthrough pain/agitation Stop: 12/07/18 01:53 Levofloxacin 750 mg/ Device 150 mls @ 100 mls/hr IVPB Q24HR [facility] Last Admin: 11/12/18 08:42 Dose: 150 mls Clindamycin Phosphate/Dextrose (600 mg/ Device) 50 mls @ 100 mls/hr IVPB Q8H [facility] Last Admin: 11/12/18 08:42 Dose: 50 mls Lorazepam (Ativan) 2 mg SLOW IVP Q1H PRN PRN Reason: Breakthrough agitation Stop: 12/07/18 01:53 Last Admin: 11/11/18 16:38 Dose: 2 mg Methylprednisolone Sodium Succinate (Solu-Medrol) 20 mg IVP Q12HR [facility] Last Admin: 11/12/18 08:41 Dose: 20 mg Morphine Sulfate (Morphine) 2 mg SLOW IVP Q1H PRN PRN Reason: BREAKTHROUGH PAIN/Agitation Stop: 12/07/18 01:53 Discontinue Previous Narcotic Pain Medications And Benzodiazepines 1 each FS .ONE [facility] Stop: 12/07/18 01:53 Ondansetron HCl (Zofran) 4 mg IVP Q6H PRN PRN Reason: Nausea/Vomiting Propofol (Diprivan) 1,000 mg IV INF PRN; Protocol PRN Reason: TO ACHIEVE GOAL RASS Stop: 12/07/18 01:53 Last Admin: 11/12/18 09:18 Dose: 1,000 mg Propofol (Diprivan Bolus) 20 mg IV Q5MIN PRN PRN Reason: BREAKTHROUGH AGITATION Stop: 12/07/18 01:53 Sodium Chloride (Flush - Normal Saline) 10 ml IVF Q12HR RM Last Admin: 11/12/18 08:43 Dose: 10 ml Sodium Chloride (Flush - Normal Saline) 10 ml IVF PRN PRN PRN Reason: Saline Flush Last Admin: 11/10/18 21:36 Dose: 10 ml
--- NOTE | 2018-11-12 11:21 | PRG ---
DATE OF SERVICE: 11/12/2018 SERVICE: Pulmonary Medicine. INTERVAL HISTORY: The patient is doing outstanding from respiratory standpoint. Oxygen requirements are improving. He cannot provide any additional elements of the history. He is heavily sedated. Otherwise, there has been no interval change to his condition. On a sedation holiday this morning, he started coughing fairly violently. PHYSICAL EXAMINATION: VITAL SIGNS: Afebrile. Pulse 66, blood pressure 116/71, respirations 18, saturation 95% on 30% FiO2 and a PEEP of 12. HEENT: Normocephalic and atraumatic. Sclerae white. Conjunctivae pink. Oral mucosa is moist without lesions. LUNGS: Decent air entry. There is a prolonged expiratory phase. Crackles are present. HEART: Normal rate and regular. ABDOMEN: Soft, nontender, nondistended. Bowel sounds are positive. MUSCULOSKELETAL: No cyanosis or clubbing. No pitting in the bilateral lower extremities. NEUROLOGIC: Grossly nonfocal. LABORATORY DATA: WBC 10.2, hemoglobin 15.8, platelets 109,000. INR 1.0. PH 7.48, pCO2 35, PO2 73 on 30% FiO2. Basic metabolic profile is unremarkable. His BUN is 36 and creatinine has downtrended to 0.73. Urine drug screen is positive for methamphetamines, cocaine, and opiates. Plasma alcohol is 48. Salicylates and acetaminophen are otherwise unremarkable. Blood cultures x2 and urine culture are negative. IMAGING: Chest x-ray demonstrates worsening of the right basilar opacity. ET tube and enteric catheters are in good position. Pleural effusion cannot be excluded on the right. ASSESSMENT: 1. Acute hypoxic respiratory failure. 2. Aspiration pneumonia. 3. Polysubstance drug overdose. DISCUSSION AND PLAN: I will switch him over to pressure control ventilation off the bilevel. I will continue to wean oxygen and positive airway pressure as tolerated. Otherwise, supportive care including antibiotics and enteric feeds will be continued. We will minimize fluids through time, but consider daily doses of Lasix shortly. Critical care time: 30 minutes. Job ID: [id number] MTDD
[2018-11-12] MEDS: fentaNYL Citrate/PF 2,000 MCG in Sodium Chloride 0.9% 60 ML IV SCH (14:29)
--- NOTE | 2018-11-12 22:37 | EKG ---
Test Reason : Blood Pressure : / mmHG Vent. Rate : 081 BPM Atrial Rate : 081 BPM P-R Int : 178 ms QRS Dur : 110 ms QT Int : 342 ms P-R-T Axes : 071 065 085 degrees QTc Int : 397 ms Sinus rhythm with occasional Premature ventricular complexes and Premature atrial complexes Nonspecific T wave abnormality Abnormal ECG Confirmed by JEFFERSON AYALA, DANIEL ([id number]), offline editor KATELIN SANCHES ([id number]) on 11/12/2018 10:36:57 PM Referred By: Confirmed By:DANIEL PAULINO MD
[2018-11-13] MEDS: Clindamycin/D5W 600 MG in Premix Bag 1 BAG IVPB SCH ×3 (00:15→17:29)
[2018-11-13 05:06] LABS: #Eosinphils 0.1 thou/uL (0.0-0.7); #Lymphocytes 1.8 thou/uL (1.20-3.40); #Monocytes 0.7 thou/uL (0.11-0.59); #Neutrophils 5.6 thou/uL (1.40-6.50); %Basophils 0.3 % (0.0-1.0); %Eosinophils 1.3 % (0.0-10.0); %Lymphocytes 21.6 % (21.0-51.0); %Monocytes 8.6 % (0.0-10.0); %Neutrophils 68.2 % (42.0-75.0); Hemoglobin 16.7 g/dL (14.0-18.0); Mean Corpuscular HGB CONC 34.2 g/dL (32.0-36.0); Mean Corpuscular Hemoglobin 33.4 pg (27.0-31.0); Mean Corpuscular Volume 97.6 fL (78.0-98.0); Mean Platelet Volume 7.4 fL (7.4-10.4); Platelet Count 99 thou/uL (130-400); Red Blood Cell (RBC) Count 5.01 mill/uL (4.70-6.10); White Blood Cell (WBC) Count 8.3 thou/uL (4.8-10.8)
[2018-11-13 05:20] LABS: Phosphorus 3.7 mg/dL (2.3-4.7)
[2018-11-13 05:22] LABS: Anion Gap 10 mmol/L (10-20); BUN (Urea Nitrogen) 30 mg/dL (8.4-25.7); Calc. Creatinine Clearance 190 mL/min (70-130); Calcium 8.7 mg/dL (7.8-10.44); Carbon Dioxide 29 mmol/L (22-29); Chloride 104 mmol/L (98-107); Estimated GFR-MDRD Greater than 90; Glucose 101 mg/dL (70-105); Magnesium 1.7 mg/dL (1.6-2.6); Potassium 3.8 mmol/L (3.5-5.1); Sodium 139 mmol/L (136-145)
[2018-11-13] MEDS: Propofol 1,000 MG/100 ML VIAL IV PRN (05:24)
[2018-11-13] MEDS: Furosemide 20 MG/2 ML VIAL SLOW IVP SCH (05:25)
--- NOTE | 2018-11-13 07:26 | RAD ---
CHEST 1 VIEW: Date: 11/13/18 INDICATION: History of pneumonia. COMPARISON: Prior study dated 11/12/18 at 0453 hours. IMPRESSION: Patient remains intubated with associated gastric catheter placement. Cardiomegaly persists. There is very subtle improvement in the right basilar opacity previously noted. Bilateral pleural effusions p ersist, left greater than right. Subclavian central venous catheter is unchanged. No definite pneumot horax is noted. POS: [facility]
[2018-11-13] MEDS ORDERED: Magnesium Sulfate 2 GM in Sodium Chloride 0.9% 100 ML IVPB SCH (09:00)
--- NOTE | 2018-11-13 09:42 | PRG ---
DATE OF SERVICE: 11/13/2018 SERVICE: Pulmonary Medicine. INTERVAL HISTORY: The patient is doing okay from respiratory standpoint. Mentation dominique, he is still a little bit agitated whenever we wean the propofol, although , the Precedex has helped actually took a big extent. There are no overnight events. PHYSICAL EXAMINATION: VITAL SIGNS: Afebrile, pulse 63, blood pressure 110/61, respirations 18, and saturation 93% on 27% FiO2 and a PEEP of 5. GENERAL: The patient is intubated and sedated. HEENT: Normocephalic and atraumatic. Sclerae white. Conjunctivae pink. Oral mucosa is moist without lesions. LUNGS: Decent air entry. Rhonchi are present. There is a prolonged expiratory phase. No wheezing. HEART: Normal rate and regular. ABDOMEN: Soft, nontender, and nondistended. Bowel sounds are positive. MUSCULOSKELETAL: No cyanosis or clubbing. There is no pitting in the bilateral lower extremities. NEUROLOGIC: Grossly nonfocal. LABORATORY DATA: WBC 8.3, hemoglobin 16.7, platelets 99,000 and gently downtrending. INR 1.0. Basic metabolic profile and magnesium fall within the normal limits. Urine drug screen is positive for many things. Blood cultures x2 and urine culture remain negative. IMAGING STUDIES: Chest x-ray demonstrates, subtle improvement in the right basilar opacity. Bilateral pleural effusions are still present. The left is greater than the right. Subclavian central venous catheter is in good position. ASSESSMENT: 1. Acute hypoxic respiratory failure, improving. 2. Aspiration pneumonia. 3. Polysubstance drug overdose. 4. Chronic obstructive pulmonary disease with acute exacerbation. DISCUSSION AND PLAN: I will replace potassium and magnesium. We will give him a sedation holiday. If he wakes up smooth, we will put him on a spontaneous breathing trial and consider him for extubation. Pulmonary/Critical Care will continue to follow very closely. We will diurese him through time and continue antibiotics, nebulized medications, and steroids. Critical care time: 30 minutes. Job ID: [id number] MTDD
[2018-11-13] MEDS: Famotidine/PF 20 mg/2ml Vial SLOW IVP SCH ×2 (09:58→20:10)
[2018-11-13] MEDS: Enoxaparin Sodium 40 MG/0.4 ML SYRINGE SC SCH (09:59)
[2018-11-13] MEDS ORDERED: Magnesium 2 GM/50 ML 2 GM in Premix Bag 1 BAG IVPB SCH (10:00)
[2018-11-13] MEDS: predniSONE 20 MG TAB PO SCH (12:31)
[2018-11-13] MEDS: Acetaminophen 325 MG TAB PO PRN ×2 (12:46→20:13)
--- NOTE | 2018-11-13 14:15 | PDOC.PN ---
- Subjective Encounter Start Date: 11/13/18 Encounter Start Time: 11:00 Pt seen for followup re: respiratory failure. Intubated, unable to complete ROS. - Objective Vital Signs & Weight: Vital Signs (12 hours) Temp Pulse Resp BP Pulse Ox 11/13/18 11:07 59 L 31 H 97 11/13/18 09:45 61 30 H 96 11/13/18 08:00 18 11/13/18 07:19 63 110/61 11/13/18 07:18 67 19 93 L 11/13/18 07:00 99.5 F 11/13/18 06:00 18 11/13/18 04:00 99.5 F 16 11/13/18 03:17 52 L Weight Admit Weight 266 lb Weight 255 lb 4.725 oz Most Recent Monitor Data Heart Rate from ECG 59 NIBP 159/81 NIBP BP-Mean 101 Respiration from ECG 32 SpO2 98 I&O: 11/12/18 11/13/18 11/14/18 06:59 06:59 06:59 Intake Total 2218.8 1777.7 390 Output Total 2455 3180 1145 Balance -236.2 -1402.3 -755 Result Diagrams: 11/13/18 04:45 11/13/18 04:45 Phys Exam - Physical Examination Intubated ETT Respiratory: clear to auscultation bilateral Cardiovascular: RRR Gastrointestinal: soft Neurological: moves all 4 limbs Deviation from normal: Unable to assess Dx/Plan (1) Acute respiratory failure with hypoxia and hypercapnia Code(s): J96.01 - ACUTE RESPIRATORY FAILURE WITH HYPOXIA; J96.02 - ACUTE RESPIRATORY FAILURE WITH HYPERCAPNIA Status: Acute Comment: Pt on ventilator , appears to be clowly improving (2) Aspiration pneumonia Code(s): J69.0 - PNEUMONITIS DUE TO INHALATION OF FOOD AND VOMIT Status: Acute Comment: on clindamycin and levofloxacin (3) Drug overdose Code(s): T50.901A - POISONING BY UNSP DRUG/MEDS/BIOL SUBST, ACCIDENTAL, INIT Status: Resolved (4) Hypotension Status: Resolved (5) KYE (acute kidney injury) Code(s): N17.9 - ACUTE KIDNEY FAILURE, UNSPECIFIED Status: Resolved - Plan * . Review of Systems - Medications/Allergies Allergies/Adverse Reactions: Allergies Allergy/AdvReac Type Severity Reaction Status Date / Time Penicillins Allergy Verified 11/07/18 02:43 Medications: Current Medications Acetaminophen (Tylenol) 650 mg [place] Q4H PRN PRN Reason: Headache/Fever/Mild Pain (1-3) Acetaminophen (Tylenol) 650 mg PO Q4H PRN PRN Reason: Headache/Fever or Pain Last Admin: 11/13/18 12:46 Dose: 650 mg Albuterol/Ipratropium (Duoneb) 3 ml NEB [id number] [facility] Last Admin: 11/13/18 11:07 Dose: 3 ml Enoxaparin Sodium (Lovenox) [address] [facility] Last Admin: 11/13/18 09:59 Dose: Not Given Famotidine (Pepcid) [address] [facility] Last Admin: 11/13/18 09:58 Dose: 20 mg Furosemide (Lasix) [address] [facility] Stop: 11/14/18 06:01 Last Admin: 11/13/18 05:25 Dose: 20 mg Fentanyl Citrate 2,000 mcg/ (Sodium Chloride) 100 mls @ 0 mls/hr IV INF [facility]; Protocol Stop: 12/06/18 21:57 Last Admin: 11/12/18 14:29 Dose: 100 mls Fentanyl Citrate (Fentanyl Bolus) 250 mls @ 0 mls/hr IVPB PRN PRN PRN Reason: Breakthrough pain/agitation Stop: 12/07/18 01:53 Levofloxacin 750 mg/ Device 150 mls @ 100 mls/hr IVPB Q24HR [facility] Last Admin: 11/13/18 10:05 Dose: 150 mls Clindamycin Phosphate/Dextrose (600 mg/ Device) 50 mls @ 100 mls/hr IVPB Q8H [facility] Last Admin: 11/13/18 10:09 Dose: 50 mls Dexmedetomidine HCl 400 mcg/ (Sodium Chloride) 100 mls @ 0 mls/hr IVPB INF [facility] Last Admin: 11/13/18 12:01 Dose: 100 mls Lorazepam (Ativan) 2 mg SLOW IVP Q1H PRN PRN Reason: Breakthrough agitation Stop: 12/07/18 01:53 Last Admin: 11/11/18 16:38 Dose: 2 mg Morphine Sulfate (Morphine) 2 mg SLOW IVP Q1H PRN PRN Reason: BREAKTHROUGH PAIN/Agitation Stop: 12/07/18 01:53 Discontinue Previous Narcotic Pain Medications And Benzodiazepines 1 each FS .ONE RM Stop: 12/07/18 01:53 Ondansetron HCl (Zofran) 4 mg IVP Q6H PRN PRN Reason: Nausea/Vomiting Prednisone (Prednisone) 40 mg PO QAM-WM RM Stop: 11/16/18 08:01 Last Admin: 11/13/18 12:31 Dose: 40 mg Propofol (Diprivan) 1,000 mg IV INF PRN; Protocol PRN Reason: TO ACHIEVE GOAL RASS Stop: 12/07/18 01:53 Last Admin: 11/13/18 05:24 Dose: 1,000 mg Propofol (Diprivan Bolus) 20 mg IV Q5MIN PRN PRN Reason: BREAKTHROUGH AGITATION Stop: 12/07/18 01:53 Sodium Chloride (Flush - Normal Saline) 10 ml IVF Q12HR RM Last Admin: 11/13/18 10:10 Dose: 10 ml Sodium Chloride (Flush - Normal Saline) 10 ml IVF PRN PRN PRN Reason: Saline Flush Last Admin: 11/10/18 21:36 Dose: 10 ml
[2018-11-14] MEDS: Acetaminophen 325 MG TAB PO PRN ×3 (02:06→21:17)
[2018-11-14] MEDS: Clindamycin/D5W 600 MG in Premix Bag 1 BAG IVPB SCH ×2 (02:28→09:16)
[2018-11-14 04:53] LABS: #Eosinphils 0.1 thou/uL (0.0-0.7); #Lymphocytes 0.9 thou/uL (1.20-3.40); #Monocytes 0.6 thou/uL (0.11-0.59); %Basophils 0.3 % (0.0-1.0); %Eosinophils 0.5 % (0.0-10.0); %Lymphocytes 9.6 % (21.0-51.0); %Monocytes 6.2 % (0.0-10.0); %Neutrophils 83.4 % (42.0-75.0); Hemoglobin 18.1 g/dL (14.0-18.0); Mean Corpuscular HGB CONC 34.3 g/dL (32.0-36.0); Mean Corpuscular Hemoglobin 32.8 pg (27.0-31.0); Mean Corpuscular Volume 95.7 fL (78.0-98.0); Mean Platelet Volume 7.7 fL (7.4-10.4); Platelet Count 99 thou/uL (130-400); Red Blood Cell (RBC) Count 5.51 mill/uL (4.70-6.10); White Blood Cell (WBC) Count 9.6 thou/uL (4.8-10.8)
[2018-11-14 05:06] LABS: Phosphorus 4.1 mg/dL (2.3-4.7)
[2018-11-14 05:07] LABS: Anion Gap 13 mmol/L (10-20); BUN (Urea Nitrogen) 26 mg/dL (8.4-25.7); Calc. Creatinine Clearance 174 mL/min (70-130); Calcium 8.8 mg/dL (7.8-10.44); Carbon Dioxide 25 mmol/L (22-29); Chloride 100 mmol/L (98-107); Estimated GFR-MDRD Greater than 90; Glucose 172 mg/dL (70-105); Magnesium 1.8 mg/dL (1.6-2.6); Potassium 4.6 mmol/L (3.5-5.1); Sodium 133 mmol/L (136-145)
[2018-11-14] MEDS: Furosemide 20 MG/2 ML VIAL SLOW IVP SCH (06:17)
[2018-11-14 06:22] VITALS: BMI 37.5
--- NOTE | 2018-11-14 07:50 | RAD ---
FRONTAL RADIOGRAPH CHEST: Date: 11/14/18 COMPARISON: 11/13/18. HISTORY: Pneumonia. FINDINGS: The endotracheal tube and nasogastric tube have been removed, as has the right-sided vascular cathete r. Persistent nonspecific air space disease noted in both lung bases with blunting of the costophreni c angles suggesting bilateral pleural effusions. IMPRESSION: Persistent nonspecific pleural and parenchymal opacity in the lung bases. POS: [facility]
[2018-11-14] MEDS: predniSONE 20 MG TAB PO SCH (09:18)
[2018-11-14] MEDS: Enoxaparin Sodium 40 MG/0.4 ML SYRINGE SC SCH (09:19)
[2018-11-14] MEDS: Famotidine/PF 20 mg/2ml Vial SLOW IVP SCH ×2 (09:19→20:24)
[2018-11-14] MEDS ORDERED: Cepastat Lozenges 1 LOZ PO PRN (14:44)
--- NOTE | 2018-11-14 14:44 | PDOC.PN ---
- Subjective Encounter Start Date: 11/14/18 Encounter Start Time: 09:40 Pt seen for followup re: acute respiratory failure. - Objective MAR Reviewed: Yes Vital Signs & Weight: Vital Signs (12 hours) Temp Pulse Resp Pulse Ox 11/14/18 14:14 91 20 95 11/14/18 12:00 97.6 F 11/14/18 11:04 71 20 98 11/14/18 08:00 100 11/14/18 07:07 97 11/14/18 07:00 97.5 F L 11/14/18 06:53 66 23 H 97 11/14/18 04:00 97.8 F 11/14/18 03:40 96 Weight Admit Weight 266 lb Weight 247 lb 5.738 oz Most Recent Monitor Data Heart Rate from ECG 87 NIBP 107/72 NIBP BP-Mean 79 Respiration from ECG 12 SpO2 99 I&O: 11/13/18 11/14/18 11/15/18 06:59 06:59 06:59 Intake Total 1777.7 2000.1 800 Output Total 3180 3060 2250 Balance -1402.3 -1059.9 -1450 Result Diagrams: 11/14/18 04:09 11/14/18 04:09 Additional Labs: labs reviewed by me Phys Exam - Physical Examination Obesity HEENT: moist MMs Neck: supple Respiratory: clear to auscultation bilateral Cardiovascular: RRR Gastrointestinal: soft Neurological: moves all 4 limbs Psychiatric: normal affect, A&O x 3 Dx/Plan (1) Acute respiratory failure with hypoxia and hypercapnia Code(s): J96.01 - ACUTE RESPIRATORY FAILURE WITH HYPOXIA; J96.02 - ACUTE RESPIRATORY FAILURE WITH HYPERCAPNIA Status: Acute Comment: Pt was extubated yesterday morning, doing better (2) Aspiration pneumonia Code(s): J69.0 - PNEUMONITIS DUE TO INHALATION OF FOOD AND VOMIT Status: Acute Comment: continue clindamycin and levofloxacin (3) Drug overdose Code(s): T50.901A - POISONING BY UNSP DRUG/MEDS/BIOL SUBST, ACCIDENTAL, INIT Status: Resolved (4) Hypotension Status: Resolved (5) KYE (acute kidney injury) Code(s): N17.9 - ACUTE KIDNEY FAILURE, UNSPECIFIED Status: Resolved - Plan * . Review of Systems - Review of Systems ENT: Throat Pain Respiratory: negative: Cough, Shortness of Breath, SOB with Excertion, Pleuritic Pain, Wheezing Cardiovascular: negative: chest pain, palpitations, orthopnea, paroxysmal nocturnal dyspnea, edema, light headedness - Medications/Allergies Allergies/Adverse Reactions: Allergies Allergy/AdvReac Type Severity Reaction Status Date / Time Penicillins Allergy Verified 11/07/18 02:43 Medications: Current Medications Acetaminophen (Tylenol) 650 mg [place] Q4H PRN PRN Reason: Headache/Fever/Mild Pain (1-3) Acetaminophen (Tylenol) 650 mg PO Q4H PRN PRN Reason: Headache/Fever or Pain Last Admin: 11/14/18 14:38 Dose: 650 mg Albuterol/Ipratropium (Duoneb) 3 ml NEB [id number] RM Last Admin: 11/14/18 14:14 Dose: 3 ml Enoxaparin Sodium (Lovenox) 40 mg SC 0900 [facility] Last Admin: 11/14/18 09:19 Dose: Not Given Famotidine (Pepcid) 20 mg SLOW IVP BID [facility] Last Admin: 11/14/18 09:19 Dose: 20 mg Fentanyl Citrate 2,000 mcg/ (Sodium Chloride) 100 mls @ 0 mls/hr IV INF [facility]; Protocol Stop: 12/06/18 21:57 Last Admin: 11/12/18 14:29 Dose: 100 mls Fentanyl Citrate (Fentanyl Bolus) 250 mls @ 0 mls/hr IVPB PRN PRN PRN Reason: Breakthrough pain/agitation Stop: 12/07/18 01:53 Levofloxacin 750 mg/ Device 150 mls @ 100 mls/hr IVPB Q24HR [facility] Last Admin: 11/14/18 09:18 Dose: 150 mls Clindamycin Phosphate/Dextrose (600 mg/ Device) 50 mls @ 100 mls/hr IVPB Q8H RM Last Admin: 11/14/18 09:16 Dose: 50 mls Dexmedetomidine HCl 400 mcg/ (Sodium Chloride) 100 mls @ 0 mls/hr IVPB INF RM Last Admin: 11/14/18 05:13 Dose: 100 mls Lorazepam (Ativan) 2 mg SLOW IVP Q1H PRN PRN Reason: Breakthrough agitation Stop: 12/07/18 01:53 Last Admin: 11/11/18 16:38 Dose: 2 mg Morphine Sulfate (Morphine) 2 mg SLOW IVP Q1H PRN PRN Reason: BREAKTHROUGH PAIN/Agitation Stop: 12/07/18 01:53 Discontinue Previous Narcotic Pain Medications And Benzodiazepines 1 each FS .ONE [facility] Stop: 12/07/18 01:53 Ondansetron HCl (Zofran) 4 mg IVP Q6H PRN PRN Reason: Nausea/Vomiting Prednisone (Prednisone) 40 mg PO QAM-WM RM Stop: 11/16/18 08:01 Last Admin: 11/14/18 09:18 Dose: 40 mg Propofol (Diprivan) 1,000 mg IV INF PRN; Protocol PRN Reason: TO ACHIEVE GOAL RASS Stop: 12/07/18 01:53 Last Admin: 11/13/18 05:24 Dose: 1,000 mg Propofol (Diprivan Bolus) 20 mg IV Q5MIN PRN PRN Reason: BREAKTHROUGH AGITATION Stop: 12/07/18 01:53 Sodium Chloride (Flush - Normal Saline) 10 ml IVF Q12HR RM Last Admin: 11/14/18 09:20 Dose: 10 ml Sodium Chloride (Flush - Normal Saline) 10 ml IVF PRN PRN PRN Reason: Saline Flush Last Admin: 11/10/18 21:36 Dose: 10 ml Throat Lozenges (Cepastat Lozenges) 1 dalila PO Q2H PRN PRN Reason: Sore Throat
--- NOTE | 2018-11-14 15:40 | PRG ---
DATE OF SERVICE: 11/14/2018 SERVICE: Pulmonary Medicine. INTERVAL HISTORY: The patient is breathing comfortably this morning. He does not have any agitation. Denies any current chest pain, fevers, or chills. Otherwise, there has been notable change to his condition. He is breathing comfortably. Nursing reports no overnight events. He remains on a Precedex drip, that has been weaned off through time. PHYSICAL EXAMINATION: VITAL SIGNS: Afebrile, pulse 91, blood pressure 107/72, respirations 12, and saturation 99% on 2 L nasal cannula. GENERAL: The patient is awake and alert, in no apparent distress. LUNGS: Decent air entry. Rhonchi and wheezing are present. There is a slightly prolonged expiratory phase, but no rhonchi. HEART: Normal rate and regular. ABDOMEN: Soft, nontender, and nondistended. Bowel sounds are positive. MUSCULOSKELETAL: No cyanosis or clubbing. No pitting in the bilateral lower extremities. NEUROLOGIC: Grossly nonfocal. LABORATORY DATA: WBC 9.6, hemoglobin 18.1, platelets 99,000. Basic metabolic profile is otherwise unremarkable. BUN is 26 with a creatinine of 0.76. Phosphorus 4.1, magnesium 1.8. Blood cultures x2 and urine culture are negative. IMAGING DATA: Chest x-ray demonstrates persistent nonspecific pleural and parenchymal opacities in the lung bases. ASSESSMENT: 1. Acute hypoxic respiratory failure, resolving. 2. Aspiration pneumonia. 3. Polysubstance drug overdose. 4. Chronic obstructive pulmonary disease with acute exacerbation. DISCUSSION AND PLAN: We will mobilize the patient. I will get rid of the Kendrick catheter. We will get Physical Therapy involved. I will stop the chest x-rays and Lasix as he is close to euvolemia. Laboratories will be interrupted. We will advance diet as tolerated. At this point, he is stable for transition to the medical unit. Pulmonary will continue to follow for the time being. Job ID: [id number]
[2018-11-15] MEDS: Acetaminophen 325 MG TAB PO PRN (03:29)
[2018-11-15] MEDS ORDERED: Polyethylene Glycol 3350 17 GM Packet PO SCH (09:45)
[2018-11-15] MEDS ORDERED: Bisacodyl 5 MG TAB PO SCH (09:45)
[2018-11-15] MEDS: Famotidine/PF 20 mg/2ml Vial SLOW IVP SCH (09:55)
[2018-11-15] MEDS: predniSONE 20 MG TAB PO SCH (09:55)
[2018-11-15] MEDS: Enoxaparin Sodium 40 MG/0.4 ML SYRINGE SC SCH (10:00)
--- NOTE | 2018-11-15 12:01 | PRG ---
DATE OF SERVICE: 11/15/2018 SERVICE: Pulmonary Medicine. INTERVAL HISTORY: The patient is doing great from respiratory standpoint. Breathing comfortably. Denies any current chest pain, fevers, or chills. Otherwise, he did not have any significant events overnight. PHYSICAL EXAMINATION: VITAL SIGNS: Afebrile, pulse 92, blood pressure 132/77, respirations 20, and saturation 93% on room air. GENERAL: The patient is awake and alert, in no apparent distress. LUNGS: Excellent air entry. No prolonged expiratory phase or wheezing is appreciated. HEART: Normal rate and regular. ABDOMEN: Soft, nontender, nondistended. Bowel sounds are positive. MUSCULOSKELETAL: No cyanosis or clubbing. There is no pitting in the bilateral lower extremities. NEUROLOGIC: Grossly nonfocal. ASSESSMENT: 1. Acute hypoxic respiratory failure, resolved. 2. Aspiration pneumonia. 3. Polysubstance drug overdose. 4. Chronic obstructive pulmonary disease with acute exacerbation, improving. DISCUSSION AND PLAN: The patient is doing fine from respiratory standpoint. At this point, he is stable for transition out of the hospital from a purely respiratory standpoint, provided that his strength is up for it. At this point, he has no further requirements for inpatient Pulmonary or Critical Care opinion, and I will sign off. He has completed a course of antibiotics directed as aspiration related disease. Steroids will be interrupted after one additional dose tomorrow morning. Please call if there is significant deterioration in the patient's function. On discharge from the hospital, I have counseled him to avoid any street drugs. I certainly do not like the idea that he is using a CPAP to administer those street drugs. As such, we are going to have a long discussion about whether or not continued CPAP is indicated in him. I will save this for an outpatient discussion. Job ID: [id number]
[2018-11-15] MEDS ORDERED: Fleet Enema 133 ML BOT FS SCH (13:00)
[2018-11-15 13:22] VITALS: BP 143/96; TEMP 97.5
--- NOTE | 2018-11-16 01:53 | DIS ---
DATE OF ADMISSION: 11/06/2018 DATE OF DISCHARGE: 11/15/2018 PRIMARY CARE PROVIDER: Maria G Wolfe MD. DISCHARGE DIAGNOSES: 1. Respiratory failure with hypoxia and hypercapnia. 2. Aspiration pneumonia. 3. Drug overdose. 4. Acute kidney injury. 5. Chronic obstructive pulmonary disease exacerbation. 6. Non-ST elevation myocardial infarction, type 2. CONSULTATIONS DURING THIS HOSPITALIZATION: 1. Pulmonary and Critical Care Medicine, Dr. Reynolds. 2. Nephrology, Dr. Miller. CONDITION OF PATIENT ON THE DAY OF DISCHARGE: Stable. I assessed Mr. Richardson on the day of discharge. He denies any chest pain or shortness of breath. Vital signs are stable. S1 and S2 are heard, regular. Lungs are clear to auscultation bilaterally. HOSPITAL COURSE: Mr. Richardson is a pleasant 58-year-old gentleman, who was admitted to [facility] on November 06 2018, for acute respiratory failure. Please refer Dr. Dill's history and physical note dated November 06, 2018 for further details. He had overdosed on street drugs. He also had acute kidney injury at the time of admission, with a creatinine of 2.17. He was seen by Pulmonary and Nephrology Services. A 2D echocardiogram showed left ventricular ejection fraction of 50% to 55%, grade 1/3 diastolic dysfunction, mildly dilated left atrium, mild mitral regurgitation, aortic valve sclerosis, and mild tricuspid regurgitation. He was also seen by Cardiology Service, and it was felt that his elevated troponins were secondary to severe hypoxia. The patient slowly improved during the hospitalization. He was extubated on 2018. He was transferred to the general floor. He was also started on diet as tolerated. He has been cleared for discharge by Pulmonary Service. His acute kidney injury also resolved. He was also assessed by physical therapy prior to discharge. He is being discharged home in a stable condition. DISCHARGE MEDICATION: Prednisone 40 mg x1 on November 16, 2018. Many thanks for allowing me to participate in your patient's care. Please feel free to contact me with any questions or concerns. He has been consult about not using street drugs. DISCHARGE DESTINATION: Home. TIME SPENT: Total amount of time spent coordinating this discharge: 32 minutes. Job ID: [id number]
[2018-11-16] MEDS ORDERED: Polyethylene Glycol 3350 17 GM Packet PO SCH (09:00)
[2018-11-16] MEDS ORDERED: Bisacodyl 5 MG TAB PO SCH (09:00)
== END 2018-11-15 15:55 | disposition home or self-care (01) | DRG 917 ==
LOC: ERS 21:20 → EDBD 21:20 → CCU 23:18 → ONC 11-14 15:35
PROVIDERS: ADMIT Student in an Organized Health Care Education/Training Program; ATTEND Student in an Organized Health Care Education/Training Program
PROC: 5A1955Z Respiratory Ventilation, Greater than 96 Consecutive Hours (ICD-10-PCS; principal; 2018-11-06)
PROC: 0BH17EZ Insertion of Endotracheal Airway into Trachea, Via Natural or Artificial Opening (ICD-10-PCS; 2018-11-06)
PROC: 3E033XZ Introduction of Vasopressor into Peripheral Vein, Percutaneous Approach (ICD-10-PCS; 2018-11-06)
DX: T43.621A Poisoning by amphetamines, accidental (unintentional), initial encounter (principal); J96.01 Acute respiratory failure with hypoxia; J96.02 Acute respiratory failure with hypercapnia; I21.A1 Myocardial infarction type 2; J69.0 Pneumonitis due to inhalation of food and vomit; J44.1 Chronic obstructive pulmonary disease with (acute) exacerbation; E87.4 Mixed disorder of acid-base balance; I16.1 Hypertensive emergency; N17.9 Acute kidney failure, unspecified; T40.2X1A Poisoning by other opioids, accidental (unintentional), initial encounter; T40.5X1A Poisoning by cocaine, accidental (unintentional), initial encounter; T51.0X1A Toxic effect of ethanol, accidental (unintentional), initial encounter; E87.5 Hyperkalemia; D64.9 Anemia, unspecified; I95.9 Hypotension, unspecified
CPT/HCPCS: 31500; 36415; 36416; 36556; 51702; 70450; 71045; 72125; 74018; 80048; 80053; 80306; 80307; 82550; 82553; 82805; 83605; 83690; 83735; 83930; 84100; 84443; 84484; 85025; 85610; 85730; 87040; 87086; 93005; 93306; 94003; 94640; 94660; 96361; 96365; 96367; 96375; 96376; J0692; J1650; J1815; J1940; J1956; J2060; J2250; J2310; J2704; J2920; J3010; J3370; J3475; J3490; J7050; J7070; J7620; S0028

== ENCOUNTER 2019-02-04 00:25 | Emergency (ER) | payer OTHER ==
[2019-02-04 01:10] LABS: Actual Bicarbonate (HCO3a) 19.8 mEq/L (22-28); Analyzer IN Cardio ER; Base Excess (BEa) -3.9 mEq/L (-2.0 to +3.0); CO2 Tension 33.1 mmHg (35.0-45.0); Calcium, Ionized 1.12 mmol/L (1.12-1.30); Carboxyhemoglobin (COHb) 6.5 gm% (0.0-3.0); Hemoglobin (Hb) 17.6 g/dL (14.0-18.0); O2 Tension (PaO2) 75.4 mmHg (80.0-100.0); Potassium - ABG Lab 3.91 mmol/L (3.70-5.30); pH, Arterial 7.39 (7.35-7.45)
[2019-02-04 01:26] LABS: Puncture Site RRA
[2019-02-04 01:27] LABS: ALV-art Gradient 32.955 (0-20)
--- NOTE | 2019-02-04 08:06 | RAD ---
EXAM: Portable chest PROVIDED CLINICAL HISTORY: Cough COMPARISON: 11/14/2018 FINDINGS: Cardiac and mediastinal silhouette is within normal limits. No focal consolidation, pleural fluid or pneumothorax evident. IMPRESSION: No evidence for an acute cardiopulmonary process.
== END 2019-02-04 01:41 ==
LOC: ERS 00:25
DX: J44.9 Chronic obstructive pulmonary disease, unspecified (principal); Z71.6 Tobacco abuse counseling; F32.9 Major depressive disorder, single episode, unspecified; Z87.891 Personal history of nicotine dependence
CPT/HCPCS: 36415; 71045; 82805; 93005; 99406

== ENCOUNTER 2019-03-22 20:16 | Observation (INO) | payer OTHER ==
[2019-03-22 20:47] LABS: #Basophils 0.1 thou/uL (0.0-0.2); #Eosinphils 0.2 thou/uL (0.0-0.7); #Lymphocytes 3.6 thou/uL (1.20-3.40); #Monocytes 0.9 thou/uL (0.11-0.59); #Neutrophils 5.7 thou/uL (1.40-6.50); %Basophils 0.7 % (0.0-1.0); %Eosinophils 1.5 % (0.0-10.0); %Lymphocytes 34.3 % (21.0-51.0); %Monocytes 8.6 % (0.0-10.0); %Neutrophils 54.9 % (42.0-75.0); Hemoglobin 17.7 g/dL (14.0-18.0); Mean Corpuscular HGB CONC 34.5 g/dL (32.0-36.0); Mean Corpuscular Hemoglobin 32.7 pg (27.0-31.0); Mean Corpuscular Volume 94.9 fL (78.0-98.0); Mean Platelet Volume 6.8 fL (7.4-10.4); Platelet Count 175 thou/uL (130-400); RBC Distribution Width 11.1 % (11.5-14.5); Red Blood Cell (RBC) Count 5.42 mill/uL (4.70-6.10); White Blood Cell (WBC) Count 10.4 thou/uL (4.8-10.8)
[2019-03-22 21:09] LABS: ALT (SGPT) 30 U/L (8-55); AST (SGOT) 34 U/L (5-34); Albumin 3.8 g/dL (3.5-5.0); Alcohol 159 mg/dL (Less than 10); Alkaline Phosphatase 57 U/L (40-150); Anion Gap 16 mmol/L (10-20); BUN (Urea Nitrogen) 15 mg/dL (8.4-25.7); Bilirubin, Total 0.8 mg/dL (0.2-1.2); Calc. Creatinine Clearance 0 mL/min (70-130); Calcium 9.2 mg/dL (7.8-10.44); Carbon Dioxide 23 mmol/L (22-29); Chloride 102 mmol/L (98-107); Estimated GFR-MDRD 26; Globulin 3.7 g/dL (2.4-3.5); Glucose 112 mg/dL (70-105); Potassium 4.3 mmol/L (3.5-5.1); Protein, Total 7.5 g/dL (6.0-8.3); Sodium 137 mmol/L (136-145)
[2019-03-22] MEDS ORDERED: Aspirin 325 MG TAB ONE (22:55)
[2019-03-22] MEDS ORDERED: Aspirin Chewable 81 MG TAB ONE (22:58)
--- NOTE | 2019-03-22 23:29 | RAD ---
Portable frontal chest radiograph: 03/22/2019 COMPARISON: 02/04/2019 HISTORY: Hypotension, chest pain FINDINGS: Lungs are clear. Heart and mediastinal contours are stable, with mild prominence of the car diac silhouette. IMPRESSION: No acute findings.
--- NOTE | 2019-03-22 23:47 | PDOC.FPRHP ---
- History of Present Illness Chief Complaint: Acute intoxication and somnolence in police custody History of Present Illness: Mr. Richardson is a 58yoM with a chronic history of substance abuse. He presents today in custody with the featherer's department after he was found to be riding around drunk and drinking while driving. Once in the police car, he laid over in the back seat and there was concern for his medical condition as he was difficult to arouse. He fell out of the police car once they arrived to [facility] and landed on the ground. He denies significant alcohol use, however per the featherer he had at least a 6 pack in the truck with him today. He denies any illicit substance After he had been in the ED for approximately 2 hours he began complaining of left sided chest pain that was dull and aching in nature. He states that nothing relieves it and nothing makes it worse. It is a 7/10 and does not radiate. He does have a significant cardiac history of prior [place] in 2018, current smoker, HTN, and HFpEF. ED Course: ASA 325, NS 2L - Allergies/Adverse Reactions Allergies Allergy/AdvReac Type Severity Reaction Status Date / Time Penicillins Allergy Verified 03/23/19 00:27 - Home Medications Medication Instructions Recorded Confirmed Type Aspirin [Ecotrin] 81 mg PO DAILY 03/23/19 03/23/19 History Carvedilol [Coreg] 6.25 mg PO BID 03/23/19 03/23/19 History Furosemide [Lasix] 20 mg PO DAILY 03/23/19 03/23/19 History Lisinopril [Zestril] 20 mg PO DAILY 03/23/19 03/23/19 History - History PMHx: HTN COPD HFpEF (50-55% in 10/2018) ABEL Hepatitis C Prior CO 2018 Polysubstance abuse PSHx: Hernia repair Facial surgery FHx: Unknown Social: Current 1ppd smoker Drinks "2-3 drinks / week" Denies current illicit drug use, has history. - Review of Systems General: denies: fever/chills, weight/appetite/sleep changes, fatigue Eyes: denies: eye pain, vision changes ENT: denies: nasal congestion, rhinorrhea Respiratory: reports: cough. denies: congestion, shortness of breath Cardiovascular: reports: chest pain, edema, orthopnea. denies: palpitation, paroxysmal nocturnal dyspnea Gastrointestinal: denies: nausea, vomiting, diarrhea, constipation Genitourinary: denies: incontinence, dysuria, polyuria Skin: denies: rashes Musculoskeletal: denies: pain, tenderness, stiffness Neurological: denies: numbness, syncope, seizure Psychological: denies: anxiety, depression - Vital signs BP: 105/52 HR: 77 RR: 16 Tmax: 98.1 Pox: 96% on RA Wt: 113kg - Physical Exam Constitutional: NAD, awake, alert and oriented -Constitutional: Poor hygeine HEENT: normocephalic and atraumatic, PERRLA, EOMI, grossly normal vision, grossly normal hearing, MMM Neck: supple, FROM Chest: no-tender to palpation, no lesions Heart: RRR, normal S1/S2, no murmurs/rubs/gallops, pulses present, other (2+ pitting edema BLE) Lungs: CTAB, no respiratory distress, good air movement, no rales/rhonchi, no wheezing Abdomen: soft, non-tender -Abdomen: protuberant Musculoskeletal: normal structure, normal tone Neurological: no focal deficit, CN II-XII intact Skin: no rash/lesions, good turgor, capillary refill <2 seconds Heme/Lymphatic: no unusual bruising or bleeding, no purpura Psychiatric: normal mood and affect FMR H&P: Results - Labs Result Diagrams: 03/22/19 20:28 03/22/19 20:28 Lab results: WBC 10.4 thou/uL (4.8-10.8) 03/22/19 20:28 Hgb 17.7 g/dL (14.0-18.0) 03/22/19 20:28 Hct 51.4 % (42.0-52.0) 03/22/19 20:28 MCV 94.9 fL (78.0-98.0) 03/22/19 20:28 Plt Count 175 thou/uL (130-400) 03/22/19 20:28 Neutrophils % 54.9 % (42.0-75.0) 03/22/19 20:28 Sodium 137 mmol/L (136-145) 03/22/19 20:28 Potassium 4.3 mmol/L (3.5-5.1) 03/22/19 20:28 Chloride 102 mmol/L (98-107) 03/22/19 20:28 Carbon Dioxide 23 mmol/L (22-29) 03/22/19 20:28 BUN 15 mg/dL (8.4-25.7) 03/22/19 20:28 Creatinine 2.59 mg/dL (0.7-1.3) H 03/22/19 20:28 Glucose 112 mg/dL (70-105) H 03/22/19 20:28 Calcium 9.2 mg/dL (7.8-10.44) 03/22/19 20:28 Total Bilirubin 0.8 mg/dL (0.2-1.2) 03/22/19 20:28 AST 34 U/L (5-34) 03/22/19 20:28 ALT 30 U/L (8-55) 03/22/19 20:28 Alkaline Phosphatase 57 U/L (40-150) 03/22/19 20:28 Serum Total Protein 7.5 g/dL (6.0-8.3) 03/22/19 20:28 Albumin 3.8 g/dL (3.5-5.0) 03/22/19 20:28 - EKG Interpretation EKG: Nonspecific ST changes - Radiology Interpretation Chest x-ray Status: report reviewed by me (No acute findings.) FMR H&P: A/P - Plan 1. Acute encephalopathy 2/2 alcohol intoxication, resolved. * on arrival to the ED was confused and somnolent. * Improved with fluids and time. * Currently alert and oriented. 2. Atypical chest pain * Heart score of 4 with significant risk factors of smoking, prior CO, and HTN. * ECHO done in October of 2018 showed 1/3 Diastolic dysfunction, EF 50-55%. * Will order Stress for the AM * Initial EKG showed non-specific ST changes. Will obtain stat EKG if any chest pain recurs. * Recently was seen by boy's adviser at [facility] in [place]. Will obtain records tomorrow. * Fasting lipid profile, A1c, TSH, Mag and Phos ordered for the morning. * Trending troponins. First 2 negative. 3. KYE * Cr 2.59 up from baseline 0.7. BUN normal. * Gentle fluid hydration. Will recheck BMP in the AM. 4. HTN * Hold beta andry for stress in the AM. * Will restart home meds. 5. COPD * DuoNebs prn * Restart home meds 6. CAD * Prior CO in 2018. * No history of stents or CABG. Disposition/LOS: Dispo: Tele OBS Code: Full VTE: Lovenox FMR H&P: Upper Level - Pertinent history 58 yo male with pmhx of substance abuse, CAD, HTN, COPD presents with alcohol intoxication via the police. He also while in the room c/o chest pain, left sided, pressure like that comes and goes. - Pertinent findings Vitals: BP: 105/72 HR: 85 O2sat: 96% on RA RR: 19 PE: NAD RRR, no m/r/g, chest pain not reproducible CTAB 2+pitting edema lower extremities Labs: Cr: 2.59 trop <0.01 alcohol level: 159 EKG: nonspecific ST changes - Plan Date/Time: 03/22/19 2347 58 yo gentleman with hx of substance abuse, CAD?, COPD, HTN admitted for an KYE , alcohol intoxication, and atypical chest pain. #Atypical chest pain- -Heart score: 4 -trop negative, will trend -initial EKG with nonspecific ST changes, will repeat if worsening cp or increasing troponin -recently had echo at [facility] a week ago, and had one here 6 mo prior showing diastolic dysfunction -Consider stress in the, as he has multiple risk factors -flp, mg, phosph, hba1c, tsh #Alcohol abuse/intoxication- -Ase protocol -ativan 1mg prn agitation #KYE -gentle fluids o/n; will recheck cmp in the am -BUN normal #Elevated AST- -alcohol use and endorses current hx of hep c -?cirrhosis per pt -would consider hepatitis panel to include HIV/RPR #?Hx CAD -per pt had a heart attack in October; it looks like he was admitted for substance abuse and had indetermant trops 2/2 drug use #COPD- -restart home meds #HTN- -currently low normal -hold bb for stress in the AM DVT: Scds CODE: full Geovanna Carrero MD, PGY-3
[2019-03-23 00:03] VITALS: BMI 41.6
[2019-03-23] MEDS ORDERED: Sodium Chloride 0.9% 1,000 ML IV SCH (00:04)
[2019-03-23] MEDS ORDERED: Acetaminophen 325 MG TAB PO PRN (00:09)
[2019-03-23] MEDS ORDERED: Nitroglycerin 0.4 MG TAB (25 Tab Bottle) PO PRN (00:09)
[2019-03-23] MEDS ORDERED: Lorazepam 2 MG/ML VIAL SLOW IVP PRN (00:19)
[2019-03-23] MEDS ORDERED: Diazepam 5 MG TAB PO PRN (00:25)
[2019-03-23] MEDS: Sodium Chloride 0.9% 1,000 ML IV SCH ×2 (00:56→13:32)
[2019-03-23] MEDS ORDERED: Thiamine HCl 200 MG/2 ML VIAL IM SCH (01:00)
[2019-03-23] MEDS ORDERED: Diazepam 5 MG TAB PO SCH (01:00)
[2019-03-23] MEDS ORDERED: Nicotine 21 MG PATCH TD SCH (01:00)
[2019-03-23 02:38] LABS: Hemoglobin A1c 5.8 % (4.0-6.0)
[2019-03-23 02:50] LABS: Troponin I Less than 0.010 ng/mL (< 0.028)
[2019-03-23 03:08] LABS: Cardiac Risk 4.7 (Less than 4.5); Cholesterol 126 mg/dl (< 200 Desired); HDL Cholesterol 27 mg/dL (>60 Neg Risk); LDL Cholesterol, Calculated 48 mg/dL; Magnesium 2.4 mg/dL (1.6-2.6); Phosphorus 4.5 mg/dL (2.3-4.7); Triglycerides 254 mg/dL (Less than 150)
--- NOTE | 2019-03-23 05:40 | PDOC.FM ---
- Subjective Subjective: Pt is very sleepy this morning. He denies any current CP or shortness of breath. States he is feeling much better than last night. - Objective Vital Signs & Weight: Vital Signs (12 hours) Temp Pulse Resp BP BP BP BP 03/23/19 04:42 72 20 03/23/19 04:19 97.5 F L 78 23 H 141/62 H 03/23/19 01:04 03/23/19 01:00 03/23/19 00:00 98.2 F 87 20 127/77 132/77 136/78 Pulse Ox 03/23/19 04:42 95 03/23/19 04:19 93 L 03/23/19 01:04 92 L 03/23/19 01:00 86 L 03/23/19 00:00 93 L Weight Weight 117.027 kg I&O: 03/21/19 03/22/19 03/23/19 06:59 06:59 06:59 Intake Total 50 Output Total 425 Balance -375 Result Diagrams: 03/22/19 20:28 03/23/19 05:11 Phys Exam - Physical Examination Constitutional: NAD Sleepy, easily arousable HEENT: PERRLA, moist MMs, sclera anicteric Neck: supple, full ROM Respiratory: no wheezing, no rales, no rhonchi, clear to auscultation bilateral Cardiovascular: RRR soft short systolic murmur, 1/6 Gastrointestinal: soft, non-tender, no distention, positive bowel sounds Musculoskeletal: pulses present, edema present (1+ edema to bilateral LE) Neurological: non-focal, moves all 4 limbs Psychiatric: normal affect, A&O x 3 Skin: no rash, cap refill <2 seconds Dx/Plan (1) Atypical chest pain Code(s): R07.89 - OTHER CHEST PAIN Status: Acute (2) Alcohol intoxication delirium Code(s): F10.121 - ALCOHOL ABUSE WITH INTOXICATION DELIRIUM Status: Acute (3) KYE (acute kidney injury) Code(s): N17.9 - ACUTE KIDNEY FAILURE, UNSPECIFIED Status: Acute (4) Hypertension Code(s): I10 - ESSENTIAL (PRIMARY) HYPERTENSION Status: Acute (5) Coronary artery disease Code(s): I25.10 - ATHSCL HEART DISEASE OF [place] CORONARY ARTERY W/O ANG PCTRS Status: Acute (6) COPD (chronic obstructive pulmonary disease) Status: Acute - Plan Plan: Alcohol intoxication delirium - resolved Brought to ED by police for DUI, on arrival to the ED was confused and somnolent. PETER 159 Improved with fluids and time. Currently alert and oriented. -Observe for signs of withdrawal -No noted history of withdrawal sx -Educate on alcohol abuse cessation -Gentle fluid resuscitation -UDS ordered Atypical chest pain Reported 7/10 left sided chest pain in ED -Heart score of 4 with significant risk factors of smoking, prior VT, and HTN. -Last ECHO done in October of 2018 showed 1/3 Diastolic dysfunction, EF 50-55%. -Initial EKG showed non-specific ST changes. Will obtain stat EKG if any chest pain recurs. -Recently was seen by filing clerk at [facility] in [place]. Will attempt to obtain records. -Risk stratification -Fasting lipid profile: triglycerides 254, otherwise normal -A1c: 5.8 -TSH: wnl -Ma.4 -Phos: 4.5 -Troponins trended negative x3 -Stress test today KYE -On admission Cr 2.59 up from baseline 0.7. BUN normal. -Initiated gentle fluid hydration. -Cr trend: 2.59 > 1.31 HTN -Hold beta andry for stress in the AM. -Will restart home meds. COPD -DuoNebs prn -Restart home meds CAD -Prior VT in 2018. -No history of stents or CABG. Addendum - Attending - Attending Attestation Date/Time: 03/24/19 0920 I personally evaluated the patient and discussed the management with Dr. Jose and team on 03/23. I agree with the History, Examination, Assessment and Plan documented above with any addition or exceptions noted below.
[2019-03-23 05:41] LABS: Anion Gap 9 mmol/L (10-20); BUN (Urea Nitrogen) 14 mg/dL (8.4-25.7); Calc. Creatinine Clearance 102 mL/min (70-130); Calcium 8.5 mg/dL (7.8-10.44); Carbon Dioxide 25 mmol/L (22-29); Chloride 108 mmol/L (98-107); Estimated GFR-MDRD 56; Glucose 135 mg/dL (70-105); Potassium 4.4 mmol/L (3.5-5.1); Sodium 138 mmol/L (136-145)
[2019-03-23 05:46] LABS: Troponin I 0.016 ng/mL (< 0.028)
[2019-03-23] MEDS ORDERED: Lisinopril 20 MG TAB PO SCH (09:00)
[2019-03-23] MEDS ORDERED: Enoxaparin Sodium 40 MG/0.4 ML SYRINGE SC SCH (09:00)
[2019-03-23] MEDS ORDERED: Multivitamin W/ Minerals 1 TAB PO SCH (09:00)
[2019-03-23] MEDS ORDERED: Folic Acid 1 MG TAB PO SCH (09:00)
[2019-03-23] MEDS ORDERED: Aspirin 81 mg Enteric Coated Tablet PO SCH ×2 (09:00)
[2019-03-23 12:47] LABS: Amphetamine Not Detected (NotDetected); Barbiturates Screen Not Detected (NotDetected); Benzodiazepine Screen Not Detected (NotDetected); Cocaine Metabolite Screen Not Detected (NotDetected); Medtox Control Line Valid? VALID (VALID); Medtox Reader # READER 4; Methadone Not Detected (NotDetected); Methamphetamine Not Detected (NotDetected); Opiate Screen Not Detected (NotDetected); Oxycodone Screen Not Detected (NotDetected); Phencyclidine (PCP) Not Detected (NotDetected); THC/Cannabinoid Screen Not Detected (NotDetected); Tricyclic Screen Not Detected (NotDetected)
[2019-03-23] MEDS ORDERED: Regadenoson 0.4 MG/5 ML SYRINGE ONE (14:02)
--- NOTE | 2019-03-23 15:12 | NM ---
CARDIAC SPECT: CLINICAL HISTORY: 58-year-old male with chest pain, NV, smoker, hypertension, smoker, heart failure, COPD, coronary art nallely disease. TECHNIQUE: A myocardial perfusion scan was performed using the single isotope one day protocol with technetium-9 9m sestamibi. 10 mCi were injected intravenously for the rest exam followed by 29 mCi for the stress exam. Pharmacologic stress with Lexiscan was monitored and interpreted by Dr. Gillette. FINDINGS: A small fixed defect is seen in the distal and anterior wall with normal wall thickening and contract ility, likely artifactual. GATED SPECT LVEF: 65%. WALL MOTION EXAM: Normal. IMPRESSION: No evidence of reversible ischemia. POS: TPC
[2019-03-23 16:39] VITALS: BP 179/92; TEMP 98.1
[2019-03-24] MEDS ORDERED: Diazepam 5 MG TAB PO PRN (04:00)
--- NOTE | 2019-03-24 04:47 | DIS ---
DATE OF ADMISSION: 03/22/2019 DATE OF DISCHARGE: 03/23/2019 RESIDENT: Tai Jose DO ADMITTING ATTENDING: Sander Strickland MD DISCHARGE ATTENDING: Krishna Moya MD CONSULTS: None. PROCEDURES PERFORMED: Cardiac stress test performed 03/23/2019, impression, no evidence of reversible ischemia. PRIMARY DIAGNOSES: Acute alcohol intoxication, atypical chest pain, and acute kidney injury. SECONDARY DIAGNOSES: Hypertension, chronic obstructive pulmonary disease, and coronary artery disease. DISCHARGE MEDICATIONS: 1. Ecotrin 81 mg daily. 2. Coreg 6.25 mg b.i.d. 3. Lasix 20 mg daily. 4. Zestril 20 mg daily. DISCONTINUED MEDICATION: None. HISTORY OF PRESENT ILLNESS AND HOSPITAL COURSE: The patient is a 58-year-old male with chronic history of alcohol and substance abuse. He presented today in [facility] after being pulled over for drunk driving. Once in the police car, the patient became more somnolent and difficult to arouse. They brought the patient to the emergency room for further evaluation. After he had been in the ED for approximately 2 hours, he began to complain of left-sided chest pain that he described as dull and aching, and rated as a 7/10. The patient has a significant cardiac history of prior [place] in 2018. He is a current smoker, history of hypertension and HFPEF. The patient was admitted for acute alcohol intoxication. Cardiac rule out to the telemetry floor for continuous monitoring. The patient was started on fluids for an acute kidney injury and to assist with his alcohol intoxication. The following day, the patient stated that he was feeling better and denied any shortness of breath, chest pain, or any other symptoms. Labs showed resolution in the patient's acute kidney injury, drop in his creatinine from 2.59 to 1.31. Troponins were trended and were negative x3. A fasting lipid panel was performed and was insignificant aside from a triglyceride of 254. Urine drug screen was performed and was negative. Later in the day, a cardiac stress test was performed that was negative for any acute findings. The patient remained asymptomatic throughout his stay and was subsequently discharged back into the [facility]. DISPOSITION: Stable. DISCHARGE INSTRUCTIONS: 1. Location: [facility]. 2. Diet: Heart healthy diet. 3. Activity: No restrictions, as tolerated. 4. Followup: PCP within 7 days. Job ID: [id number]
[2019-03-24] MEDS ORDERED: Thiamine 100 MG TAB PO SCH (09:00)
[2019-03-24] MEDS ORDERED: Magnesium Oxide 400 MG TAB PO SCH (09:00)
== END 2019-03-23 17:38 | disposition home or self-care (01) ==
LOC: ERS 20:16 → EEVIPCON 20:16 → 2SW 23:45
PROVIDERS: ADMIT Family Medicine; ATTEND Family Medicine
DX: R07.89 Other chest pain (principal); G31.2 Degeneration of nervous system due to alcohol; F10.129 Alcohol abuse with intoxication, unspecified; I11.0 Hypertensive heart disease with heart failure; I50.30 Unspecified diastolic (congestive) heart failure; N17.9 Acute kidney failure, unspecified; J44.9 Chronic obstructive pulmonary disease, unspecified; I25.10 Atherosclerotic heart disease of native coronary artery without angina pectoris; I25.2 Old myocardial infarction; G47.33 Obstructive sleep apnea (adult) (pediatric); F17.210 Nicotine dependence, cigarettes, uncomplicated; Z79.82 Long term (current) use of aspirin; Z79.899 Other long term (current) drug therapy; Z88.0 Allergy status to penicillin
CPT/HCPCS: 36415; 71045; 78452; 80048; 80053; 80061; 80306; 80307; 83036; 83735; 84100; 84443; 84484; 85025; 93005; 93017; 94640; 94760; 96360; 96361; 96365; 96372; A9500; G0378; J2785; J3411; J3475; J3490; J7620